=== PATIENT | female | born 1945 | race Caucasian/White ===

== ENCOUNTER 2017-07-05 14:48 | Emergency (ER) | payer MEDICARE ==
[2017-07-05] MEDS ORDERED: MORPHINE SULFATE 4 MG/ML SYRINGE IVP STA (15:16)
[2017-07-05 15:33] VITALS: RESP 18
--- NOTE | 2017-07-05 15:42 | ED ---
General Adult HPI - General Chief complaint: Fall Stated complaint: Fall Time Seen by Provider: 07/05/17 15:03 Source: patient, RN notes reviewed, old records reviewed Mode of arrival: EMS Limitations: no limitations - History of Present Illness Initial comments: This is a 71-year-old female here for evaluation of fall today. Patient is a 68 -year-old mechanical follow-up done here. Patient states she missed a step fell forward landed on left wrist and her face. Patient complaining of severe pain to her nose and forehead. She states the fall happened about an hour and a half ago at systems bleeding from the nose ever since. She denies loss of consciousness blood thinners. Patient's second complaint is her left wrist pain. She was ambulatory at the scene at this time. Denies any headache chest pain or shortness of breath, agrees a fall as mechanical - Related Data Home Medications Medication Instructions Recorded Confirmed Aspirin EC [Ecotrin Low Dose] 81 mg PO HS 07/05/17 07/05/17 Atorvastatin [Lipitor] 20 mg PO HS 07/05/17 07/05/17 Citrucel Tablet 1 tab PO BID 07/05/17 07/05/17 Docusate [Colace] 100 mg PO BID 07/05/17 07/05/17 Fluticasone Nasal [place] [Flonase 2 spr EA NOSTRIL DAILY 07/05/17 07/05/17 Nasal [place]] Folic Acid 0.8 mg PO Q48H 07/05/17 07/05/17 Levothyroxine Sodium [Synthroid] 100 mcg PO SUMOWETHSA 07/05/17 07/05/17 Levothyroxine Sodium [Synthroid] 150 mcg PO TUFR 07/05/17 07/05/17 Loratadine [Claritin] 10 mg PO DAILY 07/05/17 07/05/17 Multivitamins, Thera [Multivitamin 1 tab PO DAILY 07/05/17 07/05/17 (formulary)] Primidone [Mysoline] 100 mg PO TID 07/05/17 07/05/17 Propranolol HCl [Inderal LA] 120 mg PO DAILY 07/05/17 07/05/17 Propranolol [Inderal] 20 mg PO TID 07/05/17 07/05/17 Topiramate [Topamax] 50 mg PO TID 07/05/17 07/05/17 Allergies Allergy/AdvReac Type Severity Reaction Status Date / Time adhesive Allergy Unknown Verified 07/05/17 15:32 Review of Systems ROS Statement: Those systems with pertinent positive or pertinent negative responses have been documented in the HPI. ROS Other: All systems not noted in ROS Statement are negative. Past Medical History Past Medical History: Hyperlipidemia, Thyroid Disorder Additional Past Medical History / Comment(s): benign tremors History of Any Multi-Drug Resistant Organisms: None Reported Past Surgical History: Appendectomy, Orthopedic Surgery Additional Past Surgical History / Comment(s): eye surgery Past Psychological History: No Psychological Hx Reported Smoking Status: Never smoker Past Alcohol Use History: None Reported Past Drug Use History: None Reported General Exam Limitations: no limitations General appearance: alert, in no apparent distress Head exam: Present: normocephalic, normal inspection. Absent: atraumatic ( Obvious nasal deformity or fracture, significant swelling bilateral orbital contusion) Eye exam: Present: normal appearance, PERRL, EOMI. Absent: scleral icterus, conjunctival injection, periorbital swelling ENT exam: Present: normal exam, mucous membranes moist Neck exam: Present: normal inspection. Absent: tenderness, meningismus, lymphadenopathy Respiratory exam: Present: normal lung sounds bilaterally. Absent: respiratory distress, wheezes, rales, rhonchi, stridor Cardiovascular Exam: Present: regular rate, normal rhythm, normal heart sounds. Absent: systolic murmur, diastolic murmur, rubs, gallop, clicks GI/Abdominal exam: Present: soft, normal bowel sounds. Absent: distended, tenderness, guarding, rebound, rigid Extremities exam: Present: normal inspection, full ROM, normal capillary refill. Absent: tenderness, pedal edema, joint swelling, calf tenderness Back exam: Present: normal inspection Neurological exam: Present: alert, oriented X3, CN II-XII intact Psychiatric exam: Present: normal affect, normal mood Skin exam: Present: warm, dry, intact, normal color. Absent: rash Course Vital Signs 07/05/17 15:00 Temperature 98.6 F Pulse Rate 67 Respiratory 18 Rate Blood Pressure 183/92 O2 Sat by Pulse 99 Oximetry - Reevaluation(s) Reevaluation #1: 07/05/17 17:01 Patient does have pain control at this time Procedures - Orthopedic Splinting/Casting Injury #1 Side: left Upper Extremity Injury Location: wrist Upper Extremity Immobilizer: volar splint, ulnar gutter Medical Decision Making - Medical Decision Making 71 female here status post fall, mechanical trip and fall. Patient sustained nasal fracture, no septal hematoma, patient also had no loss of consciousness, no blood thinners. Patient also has left wrist fracture. At this time being and see scalp patient given pain control with adequate results, left wrist is splinted and patient can be discharged home - Radiology Data Radiology results: report reviewed (CT brain C-spine and facial bones shows positive nasal fracture, x-ray left wrist shows positive comminuted distal radius), image reviewed Disposition Clinical Impression: Fall, Nasal fracture, Left wrist fracture, Head injury Disposition: HOME SELF-CARE Condition: Good Instructions: Fall Prevention for Older Adults (ED), Head Injury (ED), Nasal Fracture (ED), Wrist Fracture in Adults (ED) Referrals: Jose De Jesus Medina MD [Primary Care Provider] - 1-2 days
[2017-07-05] MEDS ORDERED: MORPHINE SULFATE 10 MG/ML SYRINGE IM STA (15:43)
--- NOTE | 2017-07-05 16:21 | CT ---
EXAMINATION TYPE: CT brain talisha myers DATE OF EXAM: 07/05/2017 COMPARISON: NONE HISTORY: Patient fell today. Multiple facial lacerations and contusions. CT DLP: 1289.[address] of the brain was performed. The ventricles, basal cisterns and sulci overlying the cerebral convexities demonstrate enlargement. There is no evidence for intracranial hemorrhage or sulcal effacement. There is decreased attenuatio n about the periventricular white matter and deep white matter of both cerebral hemispheres, compatib le with chronic small vessel ischemia. No mass effects are seen. If symptoms persist consider MRI. Osseous calvarium is intact. IMPRESSION: 1. Age related atrophic and chronic small vessel ischemic change without acute intracranial process seen at this time. CT Cervical Spine: Unenhanced CT of the cervical spine was performed with bone and soft tissue window settings submitted . Coronal and sagittal reconstruction is obtained. There is normal alignment and prevertebral soft tissues. No evidence for acute cervical fracture . Scattered degenerative disc disease and spondylosis. Biapical scarring. IMPRESSION: 1. No evidence for acute fracture or subluxation of the cervical spine.
--- NOTE | 2017-07-05 16:26 | CT ---
EXAMINATION TYPE: CT facial bones wo con DATE OF EXAM: 07/05/2017 COMPARISON: NONE HISTORY: Patient fell today. Multiple facial lacerations and contusions. CT DLP: 590.[address] of the facial bones was performed in the axial and coronal planes. Bone and soft tissu e window settings are submitted. Moderately severe periorbital and perinasal soft tissue swelling. Comminuted and mildly displaced nasal bone fractures. The floors of the orbits are intact. Noted with in both maxillary sinuses are tiny fluid levels. Vague lucency anterior wall of the right maxillary s inus medially axial image 45 of 80 suggest possible nondisplaced nondepressed fracture of the anterio r wall of the maxillary sinus. The globes are intact. The paranasal sinuses are otherwise well aerated. IMPRESSION: 1. Comminuted and mildly displaced and depressed nasal bone fractures. 2. Suspect a nondisplaced nondepressed fracture anterior wall of the right maxillary sinus. 3. Small fluid levels within the maxillary sinuses are noted bilaterally. A displaced or depressed le ft maxillary sinus fracture is not identified with certainty at this time. 4. Moderate soft tissue edema as noted.
--- NOTE | 2017-07-05 16:27 | XR ---
EXAMINATION TYPE: XR wrist complete LT DATE OF EXAM: 07/05/2017 CLINICAL HISTORY: pain TECHNIQUE: Frontal, lateral and oblique images of the left wrist are obtained. COMPARISON: None. FINDINGS: Impacted and mildly comminuted distal radial fracture. Intra-articular extension is noted. No additional fractures identified. Soft tissue edema is noted. IMPRESSION: Impacted and mildly comminuted distal radial fracture. ICD 10 closed FRACTURE, INITIAL EVALUATION
[2017-07-05] MEDS ORDERED: IBUPROFEN 600 MG TAB PO STA (17:02)
[2017-07-05] MEDS ORDERED: ONDANSETRON ODT 4 MG TAB PO STA (17:02)
[2017-07-05] MEDS ORDERED: HYDROcodone/APAP 5-325MG 1 EACH TAB PO STA (17:02)
[2017-07-05 17:17] VITALS: BP 136/75; PULSE 60; TEMP 97.2
== END 2017-07-05 17:27 | disposition home or self-care (01) ==
LOC: EC 14:48
DX: S02.2XXA Fracture of nasal bones, initial encounter for closed fracture (principal); S52.592A Other fractures of lower end of left radius, initial encounter for closed fracture; S09.90XA Unspecified injury of head, initial encounter; E78.5 Hyperlipidemia, unspecified; E07.9 Disorder of thyroid, unspecified; Z98.890 Other specified postprocedural states; Z79.82 Long term (current) use of aspirin; Z79.51 Long term (current) use of inhaled steroids; Z79.899 Other long term (current) drug therapy; Z91.048 Other nonmedicinal substance allergy status; Z53.20 Procedure and treatment not carried out because of patient's decision for unspecified reasons; W10.9XXA Fall (on) (from) unspecified stairs and steps, initial encounter; Y92.85 Railroad track as the place of occurrence of the external cause; Y93.01 Activity, walking, marching and hiking
CPT/HCPCS: 99284; 29125; 96372; 73110; 72125; 70486; 70450; J2270

== ENCOUNTER 2017-07-26 08:27 | Day surgery (SDC) | payer MEDICARE ==
[2017-07-25 08:34] VITALS: BMI 22.8
--- NOTE | 2017-07-26 06:18 | HP ---
HISTORY AND PHYSICAL CHIEF COMPLAINT: Nasal fracture. HISTORY OF PRESENT ILLNESS: This patient is a pleasant 71-year-old female, who was referred to my office by the emergency room for evaluation of a nasal fracture which was sustained on 07/05/2017. The patient apparently tripped and fell and struck several rocks on the ground, breaking her arm and fracturing her nasal bone as demonstrated by x-rays. On the patient's initial visit on 07/11/2017 she stated that she was not sure whether she wanted to have any procedure done such as a closed reduction. At that time, I advised her that she has approximately 10 days to 2 weeks to give the decision whether or not she wants to have anything done. Beyond that point it would be almost impossible to reduce the fracture. She returned to my office on 07/24/2017 stating that she would like to have a closed reduction procedure. Therefore she is scheduled to undergo a closed reduction of nasal bone fracture under general anesthesia. PAST MEDICAL HISTORY: Past medical history reveals that she has an allergy to ADHESIVE TAPE, SURGICAL TAPE. She is able to tolerate paper tape and plastic tape. Her current medications include Lipitor, Synthroid, 1 baby aspirin daily, Claritin, Topamax and Inderal. The patient's previous surgeries include a tonsillectomy, wedge resection of both ovaries, appendectomy, left oophorectomy (left ovary removed), laser cone of the cervix, cryosurgery of the cervix. metatarsal osteotomy, colon resection for rectal prolapse, cataract surgery, bladder suspension, hysterectomy and repair of macular hole. REVIEW OF SYSTEMS: Cardiovascular is negative. Respiratory is positive for COPD. Gastrointestinal is negative. Metabolic endocrine is positive for hypercholesterolemia and hypothyroidism. Musculoskeletal is positive osteoarthritis and osteoporosis. Neurological is positive for benign essential tremor. The remainder of the review of systems is unremarkable. PHYSICAL EXAMINATION: This patient is a pleasant 71-year-old female, who is alert and cooperative. HEENT EXAMINATION: Patient is normocephalic. Tympanic membranes are normal. Middle ear space is free of any fluid or infection. Pupils equal, round, react to light and accommodation. Extraocular movements within normal limits. Intranasal examination reveals moderate septal deviation with some soft tissue edema, but no evidence of septal hematoma. There is some deformity externally at the bridge of the nose near the site of the nasal fracture. No other facial fractures are noted. Examination of the oropharynx, palpation of the neck, cranial nerves 2 through 12 and the remainder of the head and neck exam are all within normal limits. CHEST/CARDIOVASCULAR: Both lung vieyra are clear to percussion and auscultation. The patient is in regular sinus rhythm. S1 and S2 are present without any murmurs, S3s or S4s. Peripheral pulses are bilaterally symmetrical and within normal limits. ABDOMEN: There is no evidence of any masses, megaly, or tenderness. The abdomen is soft. Skin is unremarkable. Musculoskeletal and neurological are within normal limits. PELVIC RECTAL EXAM: The pelvic rectal exam is deferred at this time because the patient has this done on a regular basis at her family physician's office. The remainder of the physical examination is essentially unremarkable. IMPRESSION: Nasal bone fracture. PLAN: The patient is scheduled to undergo a closed reduction of nasal fracture under general anesthesia. ATTENTION RNS IN THE PRE-SURGICAL AREA: I have not ordered any pre-surgical prophylactic antibiotics for this patient. If the pharmacy department sends any pre- surgical prophylactic antibiotics to the pre-surgical area for this patient, please cancel that order and return the medication to the pharmacy department and make sure that they credit the patient's account appropriately. The only medications that I have ordered for this patient is Ofirmev 1000 mg IV, to be given once an intravenous has been established. I have discussed the risks, benefits and alternative therapies for the above-mentioned procedure and for both sedation/analgesia as well as necessary blood product administration, if indicated, as they pertain to this patient. The patient has indicated his or her understanding and acceptance of the risks and procedures discussed. MMODL / IJN: [id number] /
--- NOTE | 2017-07-26 07:12 | HP ---
HISTORY AND PHYSICAL CHIEF COMPLAINT: Nasal fracture. HISTORY OF PRESENT ILLNESS: This patient is a 71-year-old female who was seen in [facility] Emergency Room on 07/05/2017 with a possible nasal fracture. The patient apparently had fallen around her house and struck her head and arm on several rocks that were on the ground. She broke her left arm and apparently fractured her nose and also the maxillary sinus. She states that she did not lose consciousness and has not had any episodes of dizziness. She is not complaining of any severe pain or nasal bleeding at this time. She was seen in my office on 07/11/2017 and at that time clinical examination and review of the x- ray revealed evidence of a fracture of the nasal bones. The patient at that time was not sure whether she wanted to have anything done and therefore I told her that as long as she came back to my office within the next 10 days to 2 weeks that we would still be able to reduce the fracture without any significant difficulty. She returns to the office today stating that she would like to have the fracture reduced. In addition to this, there is a small bump on the bridge of her nose and she was wondering whether or not this would disappear after the nose was reset. I advised her that it all depends on whether that particular bone was present before the injury or not. The patient does not think it was there prior to the injury. She is therefore scheduled to undergo a closed reduction of nasal bone fracture under general anesthesia. PAST MEDICAL HISTORY: Past medical history reveals that she has no allergies to medications. Current medications include Lipitor, Synthroid, baby aspirin daily, Claritin, Topamax and Inderal. REVIEW OF SYSTEMS: Review of systems reveals the cardiovascular system is positive for a cardiac arrhythmia. Respiratory is negative. Gastrointestinal is negative. Metabolic endocrine is positive for hypocholesterolemia. The remainder of the review of systems is unremarkable. Previous surgeries include wedge resection both ovaries and an appendectomy, tonsillectomy, left oophorectomy, laser cone of the cervix, cryosurgery of the cervix, metatarsal , colon resection for rectal prolapse, cataract surgery, bladder suspension, hysterectomy, repair of macular hole. PHYSICAL EXAMINATION: The patient is a pleasant 71-year-old female who is alert and cooperative. HEENT EXAMINATION: Patient is normocephalic. Tympanic membranes are normal. Middle ear spaces are free of any fluid or infection. Pupils equal, round, react to light and accommodation. Extraocular movements within normal limits. Intranasal examination reveals the septum is in the midline, there is some soft tissue swelling intranasally but no evidence of a septal hematoma. Palpation of the bridge of the nose reveals that the patient does have some deformity secondary to nasal bone fracture. There is also a small hump in nose which may be secondary to the nasal fracture. Examination of oropharynx, palpation of the neck, cranial nerves 2 through 12 and remainder of the head and neck exam are all within normal limits. CHEST/CARDIOVASCULAR: Both lung vieyra are clear to percussion and auscultation. The patient is in regular sinus rhythm. S1 and S2 present without any murmurs, S3 or S4. Peripheral pulses are bilaterally symmetrical and within normal limits. ABDOMEN: There is no evidence of any masses, megaly, or tenderness. The abdomen is soft. Skin is unremarkable. Musculoskeletal and neurological with an all within normal limits. PELVIC/RECTAL EXAM: The pelvic rectal exam is deferred at this time because the patient has this done on a regular basis at her family physician's office. The remainder of physical exam is essentially unremarkable. IMPRESSION: Nasal bone fracture. PLAN: The patient is scheduled to undergo a closed reduction of nasal fracture under general anesthesia in a.m. ATTENTION RNS IN THE PRE-SURGICAL AREA: I have not ordered any pre-surgical prophylactic antibiotics for this patient. If the pharmacy department sends any pre- surgical prophylactic antibiotics to the presurgical area for this patient. They should be returned and make sure that the patient's account is credited appropriately. The only medications that I have ordered is Ofirmev 1000 mg IV to be given to be given once an intravenous line had been established. I have discussed the risks, benefits and alternative therapies for the above-mentioned procedure and for both sedation/analgesia as well as necessary blood product administration, if indicated, as they pertain to this patient. The patient has indicated his or her understanding and acceptance of the risks and procedures discussed. MMODL / IJN: [id number] /
--- NOTE | 2017-07-26 07:28 | HP ---
HISTORY AND PHYSICAL CHIEF COMPLAINT: Nasal fracture. HISTORY OF PRESENT ILLNESS: This patient is a pleasant 71-year-old female, who was last seen in my office recently with complaint of a nasal fracture that occurred on 07/05/2017. At that time, she was seen in the emergency room and stated that she had fallen and struck several rocks and in the process had fractured her left arm and also her nasal bones as demonstrated by x- rays. The patient was seen in my office on 07/24/2017 and at that time, she was not sure whether or not she wanted to have a closed reduction of the nasal fracture performed. I advised her that as long as she contacts my office within the next 10 to 14 days that we should still be able to do the procedure if she changes her mind. The patient returns today stating that she would like to have the procedure performed, that is to say the closed reduction of nasal fracture. PAST MEDICAL HISTORY: Past medical history reveals that the patient has allergies to CERTAIN ADHESIVES namely SURGICAL ADHESIVE TAPE. She states that she is able to tolerate paper tape and also plastic tape. Current medications include Lipitor, Synthroid, 1 baby aspirin daily, Claritin, Topamax, and Inderal. Previous surgeries include a tonsillectomy, a wedge resection of both ovaries, appendectomy, left ovary removal, laser cone of the cervix, cryosurgery of the cervix, metatarsal osteotomy, colon resection for rectal prolapse; cataract surgery, bilateral; bladder suspension, hysterectomy, macular hole repair. REVIEW OF SYSTEMS: Cardiovascular is negative. Respiratory is positive for COPD. Gastrointestinal is negative. Metabolic endocrine is positive for hypercholesterolemia and hypothyroidism. Musculoskeletal is negative. Neurological is positive for benign essential tremor. Skin and the remainder review of systems is unremarkable. PHYSICAL EXAMINATION: This patient is a pleasant 71-year-old female who is alert and cooperative. HEENT EXAMINATION: The patient is normocephalic. Tympanic membranes are normal. Middle ear spaces are free of any fluid or infection. Pupils are equal, round, react to light and accommodation. Extraocular movements are within normal limits. Intranasal examination reveals moderate septal deviation with no evidence of septal hematoma with mild soft tissue edema of the nasal passage. Examination of the bridge of the nose reveals the patient has a mildly depressed nasal bone fracture and this is demonstrated on the CT scan of the facial bones also. Palpation of the infra rims and zygomatic arches does not reveal any evidence of any potential fractures. Palpation of the neck, examination of the oropharynx, cranial nerves 2 through 12 and the remainder of the head and neck exam are within normal limits. CHEST/CARDIOVASCULAR: Both lung vieyra are clear to percussion and auscultation. The patient is in regular sinus rhythm. S1 and S2 are present without evidence of any murmurs, S3s or S4s. Peripheral pulses are bilaterally symmetrical and within normal limits. ABDOMEN: There is no evidence of any masses, megaly, or tenderness. The abdomen is soft. Skin is unremarkable. Musculoskeletal and neurological are within normal limits. PELVIC/RECTAL EXAM: The pelvic rectal exam is deferred at this time because the patient has this done on a regular basis at her family physician's office. The remainder of physical exam is essentially unremarkable. IMPRESSION: Nasal bone fracture. PLAN: The patient is scheduled to undergo closed reduction of nasal bone fracture under general anesthesia in the a.m. ATTENTION RNS IN THE PRE-SURGICAL AREA: I have not ordered any pre-surgical prophylactic antibiotics for this patient. If the pharmacy department sends any pre- surgical prophylactic antibiotic to the presurgical area for this patient, they should be returned to the pharmacy area and make sure that the patient's account is credited appropriately. The only medications that I have ordered for this patient to receive preoperatively is Ofirmev 1000 mg IV, once an intravenous line had been established. I have discussed the risks, benefits and alternative therapies for the above-mentioned procedure and for both sedation/analgesia as well as necessary blood product administration, if indicated, as they pertain to this patient. The patient has indicated his or her understanding and acceptance of the risks and procedures discussed. MMODL / RAHULN: [id number] /
[~2017-07-26 08:27] MED LIST: DEXAMETHASONE SOD PHOSPHATE 10 MG/ML 1 ML VIAL IV ONE; HYDROmorphone 1 MG/ML 1 ML SYRINGE IVP PRN; LACTATED RINGERS 1,000 ML IV SCH; MIDAZOLAM 2 MG/2 ML VIAL IV PRN; ONDANSETRON 4 MG/2 ML VIAL IVP ONE; Pre Op ABX Message 1 EACH MISC MISCELLANE ONE
[2017-07-26 08:48] VITALS: RESP 16
[2017-07-26] MEDS ORDERED: ACETAMINOPHEN IV (For NPO) 1,000 MG in EMPTY BAG 1 BAG IVPB ONE (09:45)
[2017-07-26] MEDS ORDERED: ePHEDrine SULFATE/0.9% NACL/PF 50 MG/5 ML SYRINGE IV ONE (10:05)
[2017-07-26] MEDS ORDERED: PROPOFOL 10 MG/ML 20 ML VIAL IV ONE (10:05)
[2017-07-26] MEDS ORDERED: MIDAZOLAM 2 MG/2 ML VIAL ONE (10:05)
[2017-07-26] MEDS ORDERED: SUCCINYLCHOLINE CHLORIDE 100 MG/5 ML SYR IV ONE (10:05)
[2017-07-26] MEDS ORDERED: LIDOCAINE 1% INJ 10MG/ML (20 ML MDV) ONE (10:05)
[2017-07-26] MEDS ORDERED: OXYMETAZOLINE 0.05% NASL SPRAY 1 SPRAY BOTTLE EA NOSTRIL ONE (10:29)
[2017-07-26 11:15] VITALS: TEMP 97
[2017-07-26 12:18] VITALS: BP 147/77; PULSE 55
--- NOTE | 2017-07-26 17:07 | OP ---
OPERATIVE REPORT DATE OF SURGERY: 07/26/2017. PREOPERATIVE DIAGNOSIS: Nasal bone fracture. POSTOPERATIVE DIAGNOSIS: Nasal bone fracture. ANESTHESIA: General. PROCEDURES: Close reduction of nasal bone fracture. OPERATING SURGEON: Dr. Lubin. COMPLICATIONS: None. ESTIMATED BLOOD LOSS: Less than 5 mL. OPERATIVE PROCEDURE: The patient was placed on the operating table in supine position. After uneventful induction and endotracheal intubation, satisfactory general anesthesia was obtained. Next the patient was draped in the usual and customary fashion, following which cottonoids saturated with Afrin nasal spray were placed in the right and left nares and left there for approximately 5 minutes to achieve maximal vasoconstriction. Next, inspection of the external portion of the bridge of the nose revealed that there was a hump on the right side of the nose and a depressed area on the left side of the nose. Therefore, initially using a heavy periosteal elevator, the depressed portion of the nasal bone was elevated and a portion of the hump was also elevated. Subsequently using a pair of Mower nasal forceps, the portion of the nasal bone which appeared to have a hump in it was grasped and was subsequently moved medially, thus reducing the hump deformity. This had to be done several times, as the hump had a tendency to recur. Finally the hump was reduced and the depressed fracture was reduced. Next a Jose Luis nasal splint was applied in the usual fashion by applying Mastisol onto the skin and subsequently applying the nasal strips. Following this, a support piece of foam was placed along the ridge of the nose. Next the nasal Steri-Strips were lightly coated with Mastisol, and after a period of a few minutes, the soft Velcro portion of the nasal splint was applied in the usual fashion. Following this, the aluminum splint was shaped to order and was placed on the Velcro, with an emphasis on pressure on the right side in an effort to keep the hump reduced. Care was taken not to totally obstruct the patient's nostrils. At this point the procedure was terminated. There were no intraoperative complications. Patient tolerated the procedure well and was returned to the recovery room in satisfactory condition. MMODL / IJN: [id number] /
--- NOTE | 2017-07-29 22:16 | OP ---
OPERATIVE REPORT DATE OF SURGERY: 07/26/2017 PREOPERATIVE DIAGNOSIS: Nasal bone fracture. POSTOPERATIVE DIAGNOSIS: Nasal bone fracture. ANESTHESIA: General. PROCEDURE: Closed reduction of nasal bone fracture. OPERATING SURGEON: Dr. Bertrand Lubin. COMPLICATIONS: None. ESTIMATED BLOOD LOSS: Less than 5 mL. OPERATIVE PROCEDURE: The patient was placed on operating table in supine position after uneventful induction endotracheal intubation, satisfactory general anesthesia was obtained. Next, the patient's face was draped in the usual and customary fashion. Following this, both nares were packed with cottonoids saturated with Afrin nasal spray and left in place for a period of approximately 7 minutes to achieve maximum basal constriction. Inspection intranasally did not reveal any evidence of a septal hematoma. Next, inspection externally revealed the patient had significant deformity of the nasal bones with an apparent hump on the right side and a depressed fracture on the left side of the nasal bridge. Therefore initially attention was directed towards the nasal hump on the right side and this was corrected using a heavy periosteal elevator and a pair ASHCE nasal forceps to reduce this deformed fracture. This was done by inserting the heavy periosteum elevator and subsequently the Ashce forceps into the right naris. The depressed bone fracture was elevated again using a hairy periosteal elevator and also a pair of ASHCE nasal forceps. Palpation of the area revealed that the depressed bone fracture had been elevated and the hump had been reduced. Next a [place] splint kit was applied in the usual and customary fashion by applying the nasal Steri-Strips first and subsequently applying a nasal splint support over then nasal Steri-Strips. The looped soft side of the Jose Luis splint was applied to the area in the usual fashion. Next the metal [place] splint was contoured to the patient's nose with attention such as to apply more pressure to the right side of the nose where the previous nasal hump had been reduced. The tape was removed from the metal portion of the [place] splint and the splint was applied in the usual and customary fashion. At this point, the procedure was terminated. There were no intraoperative complications. Patient tolerated procedure well and was returned to the recovery room in satisfactory condition. MMODL / IJN: [id number] /
== END 2017-07-26 12:25 | disposition home or self-care (01) ==
LOC: OR 08:27
PROVIDERS: ATTEND Otolaryngology
DX: S02.2XXA Fracture of nasal bones, initial encounter for closed fracture (principal); W18.30XA Fall on same level, unspecified, initial encounter; J44.9 Chronic obstructive pulmonary disease, unspecified; G25.0 Essential tremor; E78.00 Pure hypercholesterolemia, unspecified; E03.9 Hypothyroidism, unspecified; Z79.891 Long term (current) use of opiate analgesic; Z79.899 Other long term (current) drug therapy; Z91.09 Other allergy status, other than to drugs and biological substances
CPT/HCPCS: 21320; J2250; J1100; J2405; J2001; J0131; J0330; J2704

== ENCOUNTER 2018-10-16 13:53 | Inpatient (IN) | payer MEDICARE ==
[2018-10-16] MEDS ORDERED: SODIUM CHLORIDE 0.9% 1,000 ML IV STA (14:21)
[2018-10-16] MEDS ORDERED: PANTOPRAZOLE 40 MG/10 ML VIAL IVP STA (14:55)
--- NOTE | 2018-10-16 14:58 | ED ---
Abdominal Pain HPI - General Source: patient, RN notes reviewed Mode of arrival: wheelchair Limitations: no limitations <Travis Becerril - Last Filed: 10/16/18 16:49> <Nash Martinez - Last Filed: 10/16/18 19:55> <Michael Ruth - Last Filed: 10/16/18 20:13> - General Chief Complaint: Abdominal Pain Stated Complaint: Abd pain Time Seen by Provider: 10/16/18 14:20 - History of Present Illness Initial Comments: 73-year-old female sent emergency Department chief complaint of upper abdominal pain. Patient states started a few hours prior arrival while she was eating. She states the pain is not improved or resolved. She states the pain radiated to her back. Patient states that she has slight nausea no vomiting no diarrhea no melena or hematochezia. Patient states she struggle constipation which is normal for her. She's had a prior hysterectomy, appendectomy, all resection secondary to prolapsed rectum. Patient denies any current chest pain or shortness breath. She did admit that she had some reflux last night. (Travis Becerril) - Related Data Home Medications Medication Instructions Recorded Confirmed Atorvastatin [Lipitor] 20 mg PO HS 07/05/17 10/16/18 Citrucel Tablet 1 tab PO BID 07/05/17 10/16/18 Docusate [Colace] 100 mg PO BID 07/05/17 10/16/18 Fluticasone Nasal Index [Flonase 2 spr EA NOSTRIL DAILY 07/05/17 10/16/18 Nasal Index] Folic Acid 0.8 mg PO Q48H 07/05/17 10/16/18 Levothyroxine Sodium [Synthroid] 100 mcg PO SUMOWETHSA 07/05/17 10/16/18 Levothyroxine Sodium [Synthroid] 150 mcg PO TUFR 07/05/17 10/16/18 Loratadine [Claritin] 10 mg PO DAILY 07/05/17 10/16/18 Multivitamins, Thera [Multivitamin 1 tab PO DAILY 07/05/17 10/16/18 (formulary)] Primidone [Mysoline] 100 mg PO TID 07/05/17 10/16/18 Propranolol HCl [Inderal LA] 120 mg PO DAILY 07/05/17 10/16/18 Propranolol [Inderal] 20 mg PO TID 07/05/17 10/16/18 Topiramate [Topamax] 50 mg PO TID 07/05/17 10/16/18 Cholecalciferol [Vitamin D3] 1,000 unit PO DAILY 10/16/18 10/16/18 Propranolol [Inderal] 20 mg PO DAILY@1600 10/16/18 10/16/18 Topiramate [Topamax] 50 mg PO DAILY@1600 10/16/18 10/16/18 Allergies Allergy/AdvReac Type Severity Reaction Status Date / Time adhesive Allergy reddness Verified 10/16/18 14:52 Review of Systems ROS Other: All systems not noted in ROS Statement are negative. <Travis Becerril - Last Filed: 10/16/18 16:49> ROS Other: All systems not noted in ROS Statement are negative. <Nash Martinez - Last Filed: 10/16/18 19:55> ROS Other: All systems not noted in ROS Statement are negative. <Michael Ruth - Last Filed: 10/16/18 20:13> ROS Statement: Those systems with pertinent positive or pertinent negative responses have been documented in the HPI. Past Medical History Past Medical History: Hyperlipidemia, Thyroid Disorder Additional Past Medical History / Comment(s): left wrist fx, in cast, benign essential tremors History of Any Multi-Drug Resistant Organisms: None Reported Past Surgical History: Appendectomy, Orthopedic Surgery Additional Past Surgical History / Comment(s): eye surgery for hole in macula, sagrario cataracts, rt foot sx Past Anesthesia/Blood Transfusion Reactions: Previous Problems w/ Anesthesia Additional Past Anesthesia/Blood Transfusion Reaction / Comment(s): trouble waking up Past Psychological History: No Psychological Hx Reported Smoking Status: Never smoker <Travis Becerril - Last Filed: 10/16/18 16:49> General Exam Limitations: no limitations General appearance: alert, in no apparent distress Head exam: Present: atraumatic, normocephalic, normal inspection Eye exam: Present: normal appearance, PERRL, EOMI. Absent: scleral icterus, conjunctival injection, periorbital swelling ENT exam: Present: normal exam, normal oropharynx, mucous membranes moist Neck exam: Present: normal inspection. Absent: tenderness, meningismus, lymphadenopathy Respiratory exam: Present: normal lung sounds bilaterally. Absent: respiratory distress, wheezes, rales, rhonchi, stridor Cardiovascular Exam: Present: regular rate, normal rhythm, normal heart sounds. Absent: systolic murmur, diastolic murmur, rubs, gallop, clicks GI/Abdominal exam: Present: soft, tenderness, normal bowel sounds. Absent: distended, guarding, rebound, rigid Back exam: Absent: CVA tenderness (R), CVA tenderness (L) Skin exam: Present: warm, dry, intact, normal color. Absent: rash <Travis Becerril - Last Filed: 10/16/18 16:49> Course <Travis Becerril - Last Filed: 10/16/18 16:49> <Nash Martinez - Last Filed: 10/16/18 19:55> <Michael Ruth - Last Filed: 10/16/18 20:13> Vital Signs 10/16/18 10/16/18 10/16/18 14:07 15:20 15:22 Temperature 98.2 F Pulse Rate 59 L 60 Respiratory 16 16 Rate Blood Pressure 159/79 144/77 O2 Sat by Pulse 100 98 Oximetry 10/16/18 10/16/18 16:00 17:34 Temperature Pulse Rate 61 57 L Respiratory 18 16 Rate Blood Pressure 143/75 157/71 O2 Sat by Pulse 98 100 Oximetry - Reevaluation(s) Reevaluation #1: 10/16/18 19:55 A supervision: I proceeded [id number] evaluation the patient she did have the onset of abdominal pain around 12 noon today. This was before lunch she states it was in the epigastrium radiating to the right upper quadrant area. He was very severe. She came to the emergency department and imaging was performed which did show evidence of thickened gallbladder wall distended gallbladder and a common bile duct of 1 cm. She still has right upper quadrant tenderness palpation at this time. I did discuss case with Dr. Medina. Patient will be admitted. I do agree with the assessment and plan. Patient be started on IV antibiotics. (Nash Martinez) Medical Decision Making - Lab Data Result diagrams: 10/16/18 14:51 10/16/18 14:51 <Travis Becerril - Last Filed: 10/16/18 16:49> - Lab Data Result diagrams: 10/16/18 14:51 12/06/18 14:51 <Nash Martinez - Last Filed: 10/16/18 19:55> - Lab Data Result diagrams: 10/16/18 14:51 10/16/18 14:51 <Michael Ruth - Last Filed: 10/16/18 20:13> - Medical Decision Making Patient was signed out to me by JEAN Robles at 1700. Patient had pos salazar sign on exam. CBC and CMP are unremarkable. Troponin is negative. Amylase and lipase are within normal limits. CT shows endings that suggests clinical possibility of cholecystitis with excessive higginbotham colonic stool volume. Abdominal ultrasound shows biliary ductal dilation at 1 cm. Alkaline phosphatase and bilirubin levels are within normal limits. On reevaluation patient's pain is improved. However patient agrees to admission at this time for GI evaluation and possible HIDA scan. She will be admitted for further evaluation. Per Dr. Martinez, Dr. Medina said he willl put in consults in the morning and to Start patient on Rocephin. (Michael Ruth) - Lab Data Lab Results 10/16/18 10/16/18 10/16/18 Range/Units 14:51 14:51 14:51 WBC 6.1 (3.8-10.6) k/uL RBC 4.09 (3.80-5.40) m/uL Hgb 13.4 (11.4-16.0) gm/dL Hct 41.3 (34.0-46.0) % MCV 101.0 H (80.0-100.0) fL MCH 32.7 (25.0-35.0) pg MCHC 32.3 (31.0-37.0) g/dL RDW 13.1 (11.5-15.5) % Plt Count 240 (150-450) k/uL Neutrophils % 77 % Lymphocytes % 13 % Monocytes % 5 % Eosinophils % 3 % Basophils % 0 % Neutrophils # 4.7 (1.3-7.7) k/uL Lymphocytes # 0.8 L (1.0-4.8) k/uL Monocytes # 0.3 (0-1.0) k/uL Eosinophils # 0.2 (0-0.7) k/uL Basophils # 0.0 (0-0.2) k/uL Sodium 138 (137-145) mmol/L Potassium 4.3 (3.5-5.1) mmol/L Chloride 102 (98-107) mmol/L Carbon Dioxide 27 (22-30) mmol/L Anion Gap 9 mmol/L BUN 16 (7-17) mg/dL Creatinine 0.90 (0.52-1.04) mg/dL Est GFR (CKD-EPI)AfAm 73 (>60 ml/min/1.73 sqM) Est GFR (CKD-EPI)NonAf 63 (>60 ml/min/1.73 sqM) Glucose 101 H (74-99) mg/dL Plasma Lactic Acid Constantine 1.1 (0.7-2.0) mmol/L Calcium 9.5 (8.4-10.2) mg/dL Total Bilirubin 0.3 (0.2-1.3) mg/dL AST 27 (14-36) U/L ALT 13 (9-52) U/L Alkaline Phosphatase 69 (38-126) U/L Troponin I (0.000-0.034) ng/mL Total Protein 6.5 (6.3-8.2) g/dL Albumin 3.9 (3.5-5.0) g/dL Amylase 51 (30-110) U/L Lipase 106 (23-300) U/L Urine Color Urine Appearance (Clear) Urine pH (5.0-8.0) Ur Specific [place] (1.001-1.035) Urine Protein (Negative) Urine Glucose (UA) (Negative) Urine Ketones (Negative) Urine Blood (Negative) Urine Nitrite (Negative) Urine Bilirubin (Negative) Urine Urobilinogen (<2.0) mg/dL Ur Leukocyte Esterase (Negative) Urine RBC (0-5) /hpf 10/16/18 10/16/18 Range/Units 14:51 15:10 WBC (3.8-10.6) k/uL RBC (3.80-5.40) m/uL Hgb (11.4-16.0) gm/dL Hct (34.0-46.0) % MCV (80.0-100.0) fL MCH (25.0-35.0) pg MCHC (31.0-37.0) g/dL RDW (11.5-15.5) % Plt Count (150-450) k/uL Neutrophils % % Lymphocytes % % Monocytes % % Eosinophils % % Basophils % % Neutrophils # (1.3-7.7) k/uL Lymphocytes # (1.0-4.8) k/uL Monocytes # (0-1.0) k/uL Eosinophils # (0-0.7) k/uL Basophils # (0-0.2) k/uL Sodium (137-145) mmol/L Potassium (3.5-5.1) mmol/L Chloride (98-107) mmol/L Carbon Dioxide (22-30) mmol/L Anion Gap mmol/L BUN (7-17) mg/dL Creatinine (0.52-1.04) mg/dL Est GFR (CKD-EPI)AfAm (>60 ml/min/1.73 sqM) Est GFR (CKD-EPI)NonAf (>60 ml/min/1.73 sqM) Glucose (74-99) mg/dL Plasma Lactic Acid Constant[place] (0.7-2.0) mmol/L Calcium (8.4-10.2) mg/dL Total Bilirubin (0.2-1.3) mg/dL AST (14-36) U/L ALT (9-52) U/L Alkaline Phosphatase (38-126) U/L Troponin I <0.012 (0.000-0.034) ng/mL Total Protein (6.3-8.2) g/dL Albumin (3.5-5.0) g/dL Amylase (30-110) U/L Lipase (23-300) U/L Urine Color Light Yellow Urine Appearance Turbid H (Clear) Urine pH 7.5 (5.0-8.0) Ur Specific [place] 1.008 (1.001-1.035) Urine Protein Negative (Negative) Urine Glucose (UA) Negative (Negative) Urine Ketones Negative (Negative) Urine Blood Negative (Negative) Urine Nitrite Negative (Negative) Urine Bilirubin Negative (Negative) Urine Urobilinogen <2.0 (<2.0) mg/dL Ur Leukocyte Esterase Negative (Negative) Urine RBC 3 (0-5) /hpf 10/16/18 16:49 EKG performed at 15:02 sinus bradycardia with a rate of 58 [place] 172 QRS 82 QT/QTC 426/418 (Travis Becerril) Disposition <Travis Becerril - Last Filed: 10/16/18 16:49> <Nash Martinez - Last Filed: 10/16/18 19:55> Time of Disposition: 19:42 <Michael Ruth - Last Filed: 10/16/18 20:13> Clinical Impression: Upper abdominal pain, Common bile duct dilation Disposition: ADMITTED IP TO THIS HOSP Condition: Good Referrals: Jose De Jesus Medina MD [Primary Care Provider] - 1-2 days
[2018-10-16 15:20] LABS: Albumin 3.9 g/dL (3.5-5.0); Calcium 9.5 mg/dL (8.4-10.2); Potassium 4.3 mmol/L (3.5-5.1); Total Bilirubin 0.3 mg/dL (0.2-1.3); Total Protein 6.5 g/dL (6.3-8.2)
[2018-10-16 15:24] LABS: Basophils % (A) 0 %; Eosinophils # (A) 0.2 k/uL (0-0.7); Eosinophils % (A) 3 %; HCT 41.3 % (34.0-46.0); HGB 13.4 gm/dL (11.4-16.0); Lymphocytes # (A) 0.8 k/uL (1.0-4.8); Lymphocytes % (A) 13 %; MCH 32.7 pg (25.0-35.0); MCHC 32.3 g/dL (31.0-37.0); Mean Platelet Volume 6.8; Monocytes # (A) 0.3 k/uL (0-1.0); Monocytes % (A) 5 %; Neutrophils # (A) 4.7 k/uL (1.3-7.7); Neutrophils % (A) 77 %; Platelet Count 240 k/uL (150-450); RBC 4.09 m/uL (3.80-5.40); RDW 13.1 % (11.5-15.5); WBC 6.1 k/uL (3.8-10.6)
[2018-10-16 15:42] LABS: Appearance,Urine Turbid (Clear); Bilirubin,Urine Negative (Negative); Blood,Urine Negative (Negative); Color,Urine Light Yellow; Glucose,Urine (UA) Negative (Negative); Ketones,Urine Negative (Negative); Leukocyte Esterase,Urine Negative (Negative); Nitrite,Urine Negative (Negative); PH, Urine 7.5 (5.0-8.0); Protein,Urine Negative (Negative); RBC,Urine 3 /hpf (0-5); Specific Gravity,Urine 1.008 (1.001-1.035); Urobilinogen,Urine <2.0 mg/dL (<2.0)
--- NOTE | 2018-10-16 16:02 | US ---
EXAMINATION TYPE: US abdomen limited DATE OF EXAM: 10/16/2018 COMPARISON: NONE CLINICAL HISTORY: 73-year-old female Pain. Pt states upper ABD pain, pt is not NPO, ate 3 hours prior to exam TECHNIQUE: Multiple sonographic images of the right upper quadrant are obtained. FINDINGS: EXAM MEASUREMENTS: Liver Length: 13.8 cm Gallbladder Wall: 0.4 cm CBD: 1.0 cm Right Kidney: 10.1 x 3.8 x 4.5 cm Pancreas: wnl Liver: wnl Gallbladder: Lumen clear, appeared hydropic with thickened GB wall there are no pericholecystic flui d. Evidence for sonographic Man's sign: Yes CBD: Dilated at 1 cm. Right Kidney: Cyst lower pole= 0.9 x 0.7 x 0.9 cm, otherwise, no hydronephrosis. IMPRESSION: 1. Biliary ductal dilatation at 1 cm. Correlate with alkaline phosphatase and bilirubin levels to exc lude biliary obstruction. 2. If laboratory assessments suggests biliary obstruction, this may explain the hydropic gallbladder change. However, given wall thickening, gallbladder hydrops, and positive sonographic Man sign, ac gaurav cholecystitis is difficult to exclude. If no intervention at this time, HIDA scan with ejection f raction may be useful to further evaluate.
--- NOTE | 2018-10-16 17:57 | CT ---
EXAMINATION TYPE: CT abdomen pelvis w con DATE OF EXAM: 10/16/2018 COMPARISON: None HISTORY: Mid abdominal pain with nausea. CT DLP: 483.5 mGycm. Automated exposure control for dose reduction was used. TECHNIQUE: Helical acquisition of images was performed from the lung bases through the pelvis. CONTRAST: Performed without Oral Contrast and with IV Contrast, patient injected with 100 mL of Isovu e 300. FINDINGS: LUNG BASES: No significant abnormality is appreciated. LIVER: No significant abnormality is appreciated. BILIARY TREE: The gallbladder is distended and there is mild indistinctness of its margins circumfere ntially. There is mild prominence of the intrahepatic biliary tree down to the expected position of t he CBD, but this is a nonspecific finding which can be characterized with LFT assessment. PANCREAS: No significant abnormality is seen. SPLEEN: No significant abnormality is seen. ADRENALS: No significant abnormality is seen. KIDNEYS: No significant abnormality is seen. PERITONEAL CAVITY: No pneumoperitoneum or fluid.: No free air is visualized. RETROPERITONEAL ADENOPATHY: None visualized REPRODUCTIVE ORGANS: No significant abnormality is seen URINARY BLADDER: No significant abnormality is seen. PELVIC ADENOPATHY: None visualized. OSSEOUS STRUCTURES: No significant abnormality is seen. BOWEL: No significant abnormality is seen. Number, excessive pancolonic stool volume is noted. VASCULATURE: No acute findings. IMPRESSION: 1) CT FINDINGS WHICH SUGGEST THE CLINICAL POSSIBILITY OF CHOLECYSTITIS. 2) EXCESSIVE PANCOLONIC STOOL VOLUME.
[2018-10-16] MEDS ORDERED: HYDROmorphone 1 MG/ML 1 ML SYRINGE IVP PRN (20:10)
[2018-10-16] MEDS ORDERED: NALOXONE 0.4 MG/ML 1 ML VIAL IV PRN (20:10)
[2018-10-16] MEDS: SODIUM CHLORIDE 0.9% 1,000 ML IV SCH (21:15)
--- NOTE | 2018-10-17 04:44 | HP ---
HISTORY AND PHYSICAL ATTENDING PHYSICIAN: Dr. Gregg Medina. CHIEF COMPLAINT: Abdominal pain. HISTORY OF PRESENT ILLNESS: This 73-year-old female presents to the emergency room with complaint of significant abdominal pain, mostly upper abdomen. The patient started having pain before lunch time today. The pain was sudden onset, severe in intensity, mostly concentrated to the epigastric area, associated with some nausea. No vomiting. No fever or chills. No diarrhea. The patient says the pain continued. She had half a tuna sandwich at lunch time. Due to pain continuing waiting till after she came to the hospital. The patient's pain she said started somewhat more over the right upper abdomen and at times felt like it was in her ribs. The patient was seen in the emergency room, noted to have no fever. She had an ultrasound of the abdomen and CT scan of the abdomen done. There was some dilatation of the bile duct as well as the gallbladder and there is thickening of the gallbladder wall. The patient's clinical examination is tender at right upper abdomen, mostly in the Man's point. There is no rebound tenderness. The patient has no fever, chills, and does not appear septic. PAST MEDICAL HISTORY: Past medical history is primarily significant for familial tremors of the nervous system. She is on medical therapy. She follows with movement disorder physician and is on medications for the same. She also has had a previous history of hypothyroidism, on replacement therapy, hyperlipidemia, on medical therapy. She has a history of chronic atrial fibrillation and irritable bowel with constipation. The patient has previous rectal prolapse for which she has had surgery. Past medical history also significant for mild intermittent asthma, hepatitis A and some degenerative arthritis. PAST SURGICAL HISTORY: Significant for tonsils and adenoids. Left ovary removal, cystocele repair, bilateral cataracts, rectal prolapse repair, right 2nd toe surgery, cervix surgery and vaginal hysterectomy. PERSONAL HISTORY: Never smoker. Alcohol none. ALLERGIES: ALLERGIC TO ADHESIVE TAPE. MEDICATIONS: Medications at present include Topamax 50 mg at 4:00 pm, 50 mg t.i.d. and 50 mg t.i.d. Also, Inderal 20 mg daily at 4:00 pm and Inderal 20 mg t.i.d. Also takes Inderal LA 120 mg daily. Mysoline 100 mg t.i.d., multivitamin 1 daily, Claritin 10 mg daily, levothyroxine 150 mcg Tuesdays and Fridays and 100 mcg 5 days a week. Folic acid 0.8 mg every other day. Flonase nasal inhaler 2 puffs each nostril daily, Colace 100 mg b.i.d., Citrucel 1 tab b.i.d., vitamin D3 1000 units daily. Atorvastatin 20 mg at q.h.s. FAMILY MEDICAL HISTORY: Father age 75. He had chronic kidney disease. Mother at the age of 98 atherosclerotic heart disease. Brother age 59 with history of depression. Brother at the age of 27, gunshot wound, sister 69 with a pineal gland tumor. Sister 67 with history of tic [place]. Sister age 64 with history of diabetes mellitus. Son 52 with history of tremors. A son 50 -year-old as well with history of tremors. Son 47 years old with history of gastroesophageal reflux, daughter, 40 years of age with history of depression. SOCIAL HISTORY: Patient is a retired RN. REVIEW OF SYSTEMS: NEURO: Denies any headaches, dizziness. No double vision or blurred vision. No symptoms of TIA, syncope, seizures. PSYCH: No anxiety or depression. CARDIAC: No chest pain, angina, palpitation. RESPIRATORY: No shortness of breath, cough, or hemoptysis. GI: Present complaint of nausea, abdominal pain. No diarrhea, constipation. no symptoms of dysuria or hematuria, urgency or frequency. EXTREMITIES: Denies pain, edema. CONSTITUTIONAL: No fever or chills. HEMATOLOGICAL: No anemia, bleeding disorder. ENDOCRINE: No history of diabetes mellitus, history of hypothyroidism. SKIN: No rashes. MUSCULOSKELETAL: Arthritic symptoms. NEUROLOGICAL: Benign tremors. PHYSICAL EXAMINATION: Pleasant female present. No distress. Vital signs reveals temperature was 97.8, pulse 63, respirations 18, blood pressure 157/61, pulse ox 95 percent on room air. HEENT: Normocephalic. NECK: Supple. No JVD. Conjunctivae pink. Sclerae are difficult to assess. Oral cavity is moist. Neck reveals no JVD, carotid bruits or thyromegaly. CHEST: Clear to auscultation and percussion. Cardiac: Normal S1, S2 with no gallops, murmurs, rubs. ABDOMEN: Soft except for mild tenderness on deeper palpation of the right upper quadrant especially Man's point. No rebound tenderness. Bowel sounds are active. Extremities reveal no edema. No tenderness. Good pulses both upper and lower extremities. NEUROLOGIC: Awake, alert, oriented x3 with well-coordinated movements. LABORATORY DATA: Laboratory assessment reveals normal CBC. Chemistries normal. Troponins are negative. Lipase and amylase are normal. Bilirubin, alkaline phosphatase normal. Urinalysis is unremarkable. CT scan of the abdomen revealed dilated gallbladder and higginbotham colonic stool volume was high. The gallbladder was distended with mild indistinctiveness margins. Circumferentially, there is mild prominence of the intrahepatic biliary tree down to the expected position of the CBD. As mentioned above the ultrasound of the gallbladder, biliary ductal dilatation at 1 cm. Next, an gallbladder appears distended with thickened gallbladder wall. No pericholecystic fluid. ASSESSMENT: 1. Acute cholecystitis. 2. History of benign tremors. 3. Hypothyroidism on replacement therapy. 4. History of hyperlipidemia on medical therapy. PLAN: The patient at present is clinically stable. Continue present medical regimen. Patient is going to be admitted to the hospital, started on IV hydration, IV antibiotic. Consultation with the surgeon. Prognosis remains guarded. MMODL / IJN: [id number] /
[2018-10-17] MEDS ORDERED: LEVOTHYROXINE 75 MCG TAB PO SCH (06:30)
[2018-10-17] MEDS: SODIUM CHLORIDE 0.9% 1,000 ML IV SCH ×2 (06:30→17:32)
[2018-10-17 07:52] LABS: Basophils % (A) 1 %; Eosinophils # (A) 0.1 k/uL (0-0.7); Eosinophils % (A) 4 %; HCT 40.7 % (34.0-46.0); HGB 12.5 gm/dL (11.4-16.0); Hypochromasia Slight; Lymphocytes # (A) 0.9 k/uL (1.0-4.8); Lymphocytes % (A) 24 %; MCH 31.7 pg (25.0-35.0); MCHC 30.6 g/dL (31.0-37.0); MCV 103.6 fL (80.0-100.0); Macrocytosis Slight; Mean Platelet Volume 7.5; Monocytes # (A) 0.3 k/uL (0-1.0); Monocytes % (A) 9 %; Neutrophils % (A) 59 %; Platelet Count 205 k/uL (150-450); RBC 3.93 m/uL (3.80-5.40); WBC 3.5 k/uL (3.8-10.6)
[2018-10-17] MEDS: FLUTICASONE 50MCG/SPRAY NASAL 16GM EA NOSTRIL SCH (07:56)
[2018-10-17] MEDS: PROPRANOLOL LA 60 MG CAP.SA.24H PO SCH (07:59)
[2018-10-17] MEDS: LORATADINE 10 MG TAB PO SCH (07:59)
[2018-10-17] MEDS: DOCUSATE 100 MG CAP PO SCH ×2 (07:59→21:26)
--- NOTE | 2018-10-17 08:10 | P.GSCN ---
History of Present Illness Consult date: 10/17/18 History of present illness: 73-year-old female presented to the emergency department with complaints of abdominal pain. The abdominal pain began hours before her presentation. She states that the abdominal pain was in her upper abdomen. She complained of some nausea but denied any emesis episodes. She states that the pain began prior to lunch which included a sandwich. She denies any change in her bowel movements. She has never had this pain previously. She denies any fevers, chills, chest pain or shortness of breath. She does admit to having multiple previous abdominal surgeries including a bowel resection, hysterectomy, ovarian wedge resections. Currently, she states her pain has improved since she was admitted overnight. Workup has included an ultrasound of the abdomen along with a CT of the abdomen and pelvis. Ultrasound did show gallbladder wall thickening with a hydropic gallbladder and ductal dilation of 1 cm. Computed tomography scan also did show inflammatory changes with no evidence of pericholecystic fluid. Review of Systems All systems: negative Past Medical History Past Medical History: COPD, Hyperlipidemia, Pneumonia, Thyroid Disorder Additional Past Medical History / Comment(s): left wrist fx; nasal fx; benign essential tremors History of Any Multi-Drug Resistant Organisms: None Reported Past Surgical History: Appendectomy, Hysterectomy, Orthopedic Surgery Additional Past Surgical History / Comment(s): eye surgery for hole in macula, sagrario cataracts, rt foot sx Past Anesthesia/Blood Transfusion Reactions: Previous Problems w/ Anesthesia Additional Past Anesthesia/Blood Transfusion Reaction / Comm: trouble waking up Past Psychological History: No Psychological Hx Reported Smoking Status: Never smoker Past Alcohol Use History: Rare Past Drug Use History: None Reported - Past Family History Father Family Medical History: CVA/TIA Additional Family Medical History / Comment(s): from kidney failure in 1983 Mother Family Medical History: Myocardial Infarction ([place]) Additional Family Medical History / Comment(s): in 1996 Sister(s) Additional Family Medical History / Comment(s): trigeminal neuralgia Brother(s) Family Medical History: Pulmonary Embolus Medications and Allergies Home Medications Medication Instructions Recorded Confirmed Type Atorvastatin [Lipitor] 20 mg PO HS 07/05/17 10/16/18 History Citrucel Tablet 1 tab PO BID 07/05/17 10/16/18 History Docusate [Colace] 100 mg PO BID 07/05/17 10/16/18 History Fluticasone Nasal [place] [Flonase 2 spr EA NOSTRIL DAILY 07/05/17 10/16/18 History Nasal [place]] Folic Acid 0.8 mg PO Q48H 07/05/17 10/16/18 History Levothyroxine Sodium [Synthroid] 100 mcg PO SUMOWETHSA 07/05/17 10/16/18 History Levothyroxine Sodium [Synthroid] 150 mcg PO TUFR 07/05/17 10/16/18 History Loratadine [Claritin] 10 mg PO DAILY 07/05/17 10/16/18 History Multivitamins, Thera [Multivitamin 1 tab PO DAILY 07/05/17 10/16/18 History (formulary)] Primidone [Mysoline] 100 mg PO TID 07/05/17 10/16/18 History Propranolol HCl [Inderal [place]] 120 mg PO DAILY 07/05/17 10/16/18 History Propranolol [Inderal] 20 mg PO TID 07/05/17 10/16/18 History Topiramate [Topamax] 50 mg PO TID 07/05/17 10/16/18 History Cholecalciferol [Vitamin D3] 1,000 unit PO DAILY 10/16/18 10/16/18 History Propranolol [Inderal] 20 mg PO DAILY@1600 10/16/18 10/16/18 History Topiramate [Topamax] 50 mg PO DAILY@1600 10/16/18 10/16/18 History Allergies Allergy/AdvReac Type Severity Reaction Status Date / Time adhesive Allergy reddness Verified 10/16/18 14:52 Surgical - Exam Osteopathic Statement: *. No significant issues noted on an osteopathic structural exam other than those noted in the History and Physical/Consult. Vital Signs Temp Pulse Resp BP Pulse Ox 98.2 F 59 L 16 159/79 100 10/16/18 14:07 10/16/18 14:07 10/16/18 14:07 10/16/18 14:07 10/16/18 14:07 - General well developed, well nourished - Eyes PERRL, normal ocular movement - ENT normal mucosa - Neck trachea midline - Respiratory No difficulty with respiration - Abdomen Soft, tender to palpation in right upper quadrant, nondistended, no rebound, no guarding - Neurologic normal coordination - Psychiatric oriented to time, oriented to person, oriented to place Results - Labs 10/17/18 07:16 10/16/18 14:51 Abnormal Lab Results - Last 24 Hours (Table) 10/16/18 10/16/18 10/16/18 Range/Units 14:51 14:51 15:10 WBC (3.8-10.6) k/uL MCV 101.0 H (80.0-100.0) fL MCHC (31.0-37.0) g/dL Lymphocytes # 0.8 L (1.0-4.8) k/uL Glucose 101 H (74-99) mg/dL Urine Appearance Turbid H (Clear) 10/17/18 Range/Units 07:16 WBC 3.5 L (3.8-10.6) k/uL MCV 103.6 H (80.0-100.0) fL MCHC 30.6 L (31.0-37.0) g/dL Lymphocytes # 0.9 L (1.0-4.8) k/uL Glucose (74-99) mg/dL Urine Appearance (Clear) Diabetes panel 10/16/18 Range/Units 14:51 Sodium 138 (137-145) mmol/L Potassium 4.3 (3.5-5.1) mmol/L Chloride 102 (98-107) mmol/L Carbon Dioxide 27 (22-30) mmol/L BUN 16 (7-17) mg/dL Creatinine 0.90 (0.52-1.04) mg/dL Glucose 101 H (74-99) mg/dL Calcium 9.5 (8.4-10.2) mg/dL AST 27 (14-36) U/L ALT 13 (9-52) U/L Alkaline Phosphatase 69 (38-126) U/L Total Protein 6.5 (6.3-8.2) g/dL Albumin 3.9 (3.5-5.0) g/dL Calcium panel 10/16/18 Range/Units 14:51 Calcium 9.5 (8.4-10.2) mg/dL Albumin 3.9 (3.5-5.0) g/dL Pituitary panel 10/16/18 Range/Units 14:51 Sodium 138 (137-145) mmol/L Potassium 4.3 (3.5-5.1) mmol/L Chloride 102 (98-107) mmol/L Carbon Dioxide 27 (22-30) mmol/L BUN 16 (7-17) mg/dL Creatinine 0.90 (0.52-1.04) mg/dL Glucose 101 H (74-99) mg/dL Calcium 9.5 (8.4-10.2) mg/dL Adrenal panel 10/16/18 Range/Units 14:51 Sodium 138 (137-145) mmol/L Potassium 4.3 (3.5-5.1) mmol/L Chloride 102 (98-107) mmol/L Carbon Dioxide 27 (22-30) mmol/L BUN 16 (7-17) mg/dL Creatinine 0.90 (0.52-1.04) mg/dL Glucose 101 H (74-99) mg/dL Calcium 9.5 (8.4-10.2) mg/dL Total Bilirubin 0.3 (0.2-1.3) mg/dL AST 27 (14-36) U/L ALT 13 (9-52) U/L Alkaline Phosphatase 69 (38-126) U/L Total Protein 6.5 (6.3-8.2) g/dL Albumin 3.9 (3.5-5.0) g/dL - Imaging CT scan - abdomen: report reviewed, image reviewed US - abdomen: report reviewed, image reviewed (Reviewed both CT and ultrasound of the abdomen. There is notable thickening of the gallbladder wall. Ductal dilation is also present.) Assessment and Plan (1) Common bile duct dilation Narrative/Plan: Due to common bile duct dilation, will obtain a HIDA scan to evaluate for any obstructive process prior to surgical intervention for cholecystitis. Current Visit: Yes Status: Acute Code(s): K83.8 - OTHER SPECIFIED DISEASES OF BILIARY TRACT SNOMED Code(s): 092634360 (2) Upper abdominal pain Narrative/Plan: I did discuss the case in depth with the patient and the patient's primary care physician. The patient does have multiple previous abdominal surgeries that has likely resulted in adhesions. The patient is at an increased risk for an open cholecystectomy versus a laparoscopic cholecystectomy. Prior to any surgical intervention, we will obtain a HIDA scan to evaluate the ductal dilation and evaluate for any biliary obstruction. Laboratory values are currently pending and will be followed. Plan for surgical intervention if HIDA scan reveals no biliary obstruction. Current Visit: Yes Status: Acute Code(s): R10.10 - UPPER ABDOMINAL PAIN, UNSPECIFIED SNOMED Code(s): 47127877
[2018-10-17 08:14] LABS: ALT 18 U/L (9-52); AST 26 U/L (14-36); Albumin 3.1 g/dL (3.5-5.0); Alkaline Phosphatase 50 U/L (38-126); Anion Gap 3 mmol/L; Bilirubin, Delta 0.3 mg/dL (0.0-0.2); Bilirubin,Unconjugated 0.1 mg/dL (0.0-1.1); Blood Urea Nitrogen 17 mg/dL (7-17); Calcium 8.6 mg/dL (8.4-10.2); Carbon Dioxide 23 mmol/L (22-30); Chloride 114 mmol/L (98-107); Glucose 82 mg/dL (74-99); Potassium 4.7 mmol/L (3.5-5.1); Sodium 140 mmol/L (137-145); Total Bilirubin 0.4 mg/dL (0.2-1.3); Total Protein 5.6 g/dL (6.3-8.2)
[2018-10-17] MEDS: metroNIDAZOLE-NS PMX 500 MG in SALINE 1 100ML.BAG IVPB SCH ×2 (08:49→15:11)
[2018-10-17] MEDS ORDERED: CITRUCEL PO SCH (09:00)
[2018-10-17] MEDS ORDERED: PRIMIDONE 50 MG TAB PO SCH (09:00)
--- NOTE | 2018-10-17 13:17 | NM ---
EXAMINATION TYPE: NM hepatobiliary w EF DATE OF EXAM: 10/17/2018 COMPARISON: CT abdomen pelvis dated 10/16/2018. HISTORY: Cholecystitis. Right upper quadrant pain. TECHNIQUE: After the intravenous administration of 4.79 mCi Tc 99m Mebrofenin hepatobiliary scintigra phy is performed. Immediate images post injection. FINDINGS: There is satisfactory initial accumulation of tracer by the liver. The gallbladder is visualized wit hin 18 minutes. The small bowel activity is noted after ensure was given. At one hour 8 ounces of o ral ensure plus is given to mimic CCK and gallbladder ejection fraction is calculated at 25% , abnor mal. Therefore there is no scintigraphic evidence of cystic or common bile duct obstruction to sugge st acute cholecystitis or gallbladder dyskinesia. IMPRESSION: 1. Biliary dyskinesia with an abnormal biliary ejection fraction of 25%. 2. No evidence of acute or chronic cholecystitis.
[2018-10-17] MEDS: TOPIRAMATE 25 MG TAB PO SCH (16:00)
[2018-10-17] MEDS ORDERED: TOPIRAMATE 25 MG TAB PO SCH (16:00)
[2018-10-17] MEDS: PRIMIDONE 50 MG TAB PO SCH (16:00)
[2018-10-17] MEDS: PROPRANOLOL 20 MG TAB PO SCH (16:00)
--- NOTE | 2018-10-17 23:00 | PN ---
PROGRESS NOTE CHIEF COMPLAINT: Re-evaluation. HISTORY OF PRESENT ILLNESS: This 73-year-old was admitted to the hospital with a tender mass, right upper quadrant, centered at the Man's point. The patient has evidence suggestive of chronic cholecystitis, dilated bile duct. The patient is interestingly noted to have no gallstones. She is feeling better this morning. She was given Rocephin. She has continued to remain afebrile. The pain initially was improved. NEURO: Denies any headaches, dizziness. Does have tremors. PSYCH: No anxiety or depression. CARDIAC: No chest pain, angina, palpitation. RESPIRATORY: No shortness of breath or cough. GI: No nausea, vomiting, abdominal pain, diarrhea. : No symptoms of dysuria or hematuria. EXTREMITIES: No pain, edema. CONSTITUTIONAL: No fever or chills. PHYSICAL EXAMINATION: Pleasant female in no distress. Vital signs reveal temperature 97.9, pulse 52, respirations 16, blood pressure 94/50, pulse ox 97% on room air. Repeat blood pressure was 122/56. HEENT: Normocephalic. NECK: No JVD. CHEST: Clear to auscultation and percussion. CARDIAC: Normal S1 and S2 with no gallops, murmurs or rubs. ABDOMEN: Soft. Bowel sounds present. Extremities reveal no edema. No tenderness. Neurologically awake, alert, oriented with well-coordinated movements. LABORATORY ASSESSMENT: CBC reveals white count is down to 3.5, hemoglobin 12.5, platelet count 205. Electrolytes are normal, hepatic function normal. The patient had a HIDA scan ordered by Dr. Gillette. The patient's HIDA scan reveals an ejection fraction of 25%. ASSESSMENT: 1. Acute cholecystitis. 2. Essential tremors. 3. Hypertension, controlled. PLAN: The patient is stable. Continue present medical regimen. Patient's condition was discussed with the patient. Prognosis guarded. The patient is planned for cholecystectomy tomorrow, probably open. Patient's condition was discussed with the patient. Reviewed status. MMODL / IJN: [id number] /
[2018-10-18] MEDS: metroNIDAZOLE-NS PMX 500 MG in SALINE 1 100ML.BAG IVPB SCH ×3 (00:30→16:13)
[2018-10-18] MEDS: SODIUM CHLORIDE 0.9% 1,000 ML IV SCH ×2 (05:24→12:12)
[2018-10-18] MEDS ORDERED: SODIUM CHLORIDE 0.9% 1,000 ML IV ONE (08:09)
[2018-10-18] MEDS ORDERED: HEPARIN SODIUM,PORCINE 5,000 UNIT/ML 1 ML VIAL ONE (08:09)
[2018-10-18] MEDS ORDERED: HYDROmorphone (PF) 1 MG/ML ONE (08:09)
[2018-10-18] MEDS ORDERED: PROPOFOL 10 MG/ML 20 ML VIAL IV ONE (08:09)
[2018-10-18] MEDS ORDERED: LIDOCAINE 1% INJ 10MG/ML (20 ML MDV) ONE (08:09)
[2018-10-18] MEDS ORDERED: GLYCOPYRROLATE 0.2 MG/ML 2 ML VIAL ONE (08:09)
[2018-10-18] MEDS ORDERED: fentaNYL (PF) 50 MCG/ML 2 ML AMP ONE (08:09)
[2018-10-18] MEDS ORDERED: SUCCINYLCHOLINE CHLORIDE 100 MG/5 ML SYR IV ONE (08:09)
[2018-10-18] MEDS ORDERED: ROCURONIUM BROMIDE 10 MG/ML 10 ML VIAL IV ONE (08:09)
[2018-10-18] MEDS ORDERED: NEOSTIGMINE 1 MG/ML 10 ML VIAL ONE (08:09)
[2018-10-18] MEDS ORDERED: MORPHINE SULFATE 2 MG/ML SYRINGE IV PRN (08:18)
[2018-10-18] MEDS ORDERED: BUPIVACAIN-EPI 0.5%-1:200,000 30 ML VIAL SQ ONE ×2 (08:29)
--- NOTE | 2018-10-18 09:17 | P.OP ---
Date of Procedure: 10/18/18 Preoperative Diagnosis: Cholecystitis Postoperative Diagnosis: Cholecystitis Procedure(s) Performed: Laparoscopic cholecystectomy Anesthesia: MAHNAZ Surgeon: Austin Gillette Pathology: other (Gallbladder and contents) Condition: stable Disposition: floor Indications for Procedure: 73-year-old female presented to the emergency department with complaints of right upper quadrant pain. Multiple imaging modalities revealed cholecystitis along with clinical exam. Secondary to this, patient was offered a laparoscopic cholecystectomy. The patient was explained the risks, benefits and alternatives to the procedure and did provide consent prior to attending the operating suite. Operative Findings: Inflamed gallbladder Description of Procedure: The patient was brought into the operating suite and placed in supine position on the operating table. Sedation was provided by anesthesia and the patient underwent endotracheal intubation. The patient was then prepped and draped in regular sterile fashion. Due to previous abdominal surgery, the abdomen was entered at palmers point in the left upper quadrant under direct visualization using a 5 mm Visiport. Pneumoperitoneum was achieved. There was no evidence of significant amount of adhesions. A 12 mm trocar was then placed in the infraumbilical region. 3 additional 5 mm ports were placed. One was placed in the subxiphoid region and 2 in the right upper quadrant. The gallbladder was then grasped and retracted and the patient was positioned appropriately. Dissection was carried to free the gallbladder from the surrounding adhesions. The cystic duct and cystic artery were both skeletonized. The cystic duct was noted to be dilated and a stapler device was used across the cystic duct. The cystic artery was skeletonized and 2 clips were placed proximally one was placed distally and the cystic artery was ligated. Electrocautery was then used to dissect the gallbladder from the gallbladder fossa. The gallbladder was then placed and an Endo Catch bag and removed from the abdomen. Irrigation was then used in the right upper quadrant. Hemostasis was maintained. Pneumoperitoneum was released. The fascial incision at the 12 mm port site was closed with a [id number] Vicryl suture. All skin incisions were closed with 4-0 Vicryl subcuticular suture. The patient was awakened in the operating suite and taken to postanesthesia care unit in stable condition.
[2018-10-18] MEDS: PRIMIDONE 50 MG TAB PO SCH ×3 (11:49→16:13)
[2018-10-18] MEDS: PROPRANOLOL 20 MG TAB PO SCH ×3 (11:49→16:13)
[2018-10-18] MEDS: HEPARIN SODIUM,PORCINE 5,000 UNIT/ML 1 ML VIAL SQ SCH ×2 (11:49→16:13)
[2018-10-18] MEDS: LACTATED RINGERS 1,000 ML IV SCH (11:50)
[2018-10-18] MEDS: TOPIRAMATE 25 MG TAB PO SCH ×3 (11:50→16:13)
[2018-10-18] MEDS: PROPRANOLOL LA 60 MG CAP.SA.24H PO SCH (12:08)
[2018-10-18] MEDS: LORATADINE 10 MG TAB PO SCH (12:09)
[2018-10-18] MEDS: DOCUSATE 100 MG CAP PO SCH ×2 (12:09→20:18)
[2018-10-18] MEDS: FLUTICASONE 50MCG/SPRAY NASAL 16GM EA NOSTRIL SCH (12:10)
[2018-10-18] MEDS: LEVOTHYROXINE 100 MCG TAB PO SCH (12:11)
--- NOTE | 2018-10-18 12:25 | P.PN ---
Subjective Progress Note Date: 10/18/18 Principal diagnosis: This 73-year-old female was admitted to the hospital with sudden onset abdominal pain was centered around right upper quadrant with a positive Man' s sign. Ultrasound CAT scan of the abdomen are more suggestive of acute on chronic cholecystitis with no gallstones and possibility of having passed a small stone was still entertained. The patient had dilated bile duct. Patient was started on Rocephin fluids and was referred to the surgeon. He did request a HIDA scan. Bladder scan suggested 25% ejection fraction. Patient had no fever or chills no white count. Patient is taken into surgery today and the gallbladder was removed laparoscopically. Patient has tolerated the surgery well. I'm seeing the patient postoperatively. She denies any significant symptoms of abdominal pain nausea. She does have a history of chronic essential hypertension fairly advanced on multiple medications. She does have a history of chronic constipation. Requesting medication for the same. We will place her on a Dulcolax suppository later today. REVIEW OF SYSTEMS: Neuro: Denies any headaches dizziness. Psych: Denies anxiety depression feels oriented. Cardiac: Denies chest pain and angina palpitations. Respiratory: Denies shortness of breath cough. GI: Denies nausea vomiting , post op minimal abdominal pain. No diarrhea . Chronic constipation, no bowel movement yet. : Denies dysuria hematuria. Extremities: No pain edema Skin: Intact. Constitutional: No fever, chills. Objective - Vital Signs Vital signs: Vital Signs Temp 96.7 F L 10/18/18 10:50 Pulse 51 L 10/18/18 10:50 Resp 16 10/18/18 10:50 BP 143/65 10/18/18 10:50 Pulse Ox 97 10/18/18 10:50 Intake & Output 10/17/18 10/18/18 10/18/18 18:59 06:59 18:59 Intake Total 2130 1840 700 Output Total 10 Balance 2130 1840 690 Intake: IV 700 Intake, IV Titration 1050 1300 Amount Sodium Chloride 0.9% 1, 800 1200 000 ml @ 100 mls/hr IV . Q10H [facility] Rx#:[id number] cefTRIAXone 1,000 mg In 50 Sodium Chloride 0.9% 50 ml @ 100 mls/hr IVPB Q24HR [facility] Rx#:[id number] metroNIDAZOLE-NS PMX 500 200 100 mg In Saline 1 100ml.bag @ 100 mls/hr IVPB Q8HR [facility] Rx#:[id number] Oral 1080 540 Output: Estimated Blood Loss 10 Other: Voiding Method Toilet Toilet Toilet Diaper Diaper Diaper # Voids 3 2 PHYSICAL EXAMINATION: Cooperative, at present in no acute distress. HEENT: Neck supple. No JVD. Chest: Clear to auscultation percussion. Cardiac: Normal S1-S2 no gallops no murmur . Abdomen: Minimal tendernessbowel sounds present. Extremities: No edema no tenderness Neurologically: Awake, alert, oriented with well-coordinated movements. - Labs CBC & Chem 7: 10/17/18 07:16 10/17/18 07:16 Assessment and Plan Assessment: ASSESSMENT: 1. Acute cholecystitis. 2. Status post laparoscopic cholecystectomy today. 3. Benign essential tremors. 4. Chronic constipation. PLAN: Continue present medical regimen. Patient's condition discussed with the patient and prognosis remains guarded potential discharge home tomorrow patient will be given Dulcolax suppository later today.
[2018-10-18] MEDS: BISACODYL 10 MG SUPP RECTAL SCH (20:19)
[2018-10-19] MEDS: HEPARIN SODIUM,PORCINE 5,000 UNIT/ML 1 ML VIAL SQ SCH ×2 (00:36→08:37)
[2018-10-19] MEDS: metroNIDAZOLE-NS PMX 500 MG in SALINE 1 100ML.BAG IVPB SCH ×2 (00:36→09:56)
[2018-10-19] MEDS: SODIUM CHLORIDE 0.9% 1,000 ML IV SCH (03:39)
[2018-10-19] MEDS: LEVOTHYROXINE 100 MCG TAB PO SCH (06:05)
[2018-10-19 07:20] LABS: Basophils % (A) 0 %; Eosinophils # (A) 0.1 k/uL (0-0.7); Eosinophils % (A) 2 %; HCT 39.1 % (34.0-46.0); HGB 12.7 gm/dL (11.4-16.0); Lymphocytes # (A) 0.8 k/uL (1.0-4.8); Lymphocytes % (A) 16 %; MCH 32.5 pg (25.0-35.0); MCHC 32.4 g/dL (31.0-37.0); MCV 100.3 fL (80.0-100.0); Mean Platelet Volume 7.8; Monocytes # (A) 0.4 k/uL (0-1.0); Monocytes % (A) 8 %; Neutrophils # (A) 3.7 k/uL (1.3-7.7); Neutrophils % (A) 71 %; Platelet Count 194 k/uL (150-450); RDW 13.1 % (11.5-15.5); WBC 5.2 k/uL (3.8-10.6)
[2018-10-19 07:42] LABS: ALT 15 U/L (9-52); AST 28 U/L (14-36); Alkaline Phosphatase 53 U/L (38-126); Anion Gap 6 mmol/L; Bilirubin, Delta 0.3 mg/dL (0.0-0.2); Bilirubin,Unconjugated 0.2 mg/dL (0.0-1.1); Blood Urea Nitrogen 9 mg/dL (7-17); Calcium 8.5 mg/dL (8.4-10.2); Carbon Dioxide 24 mmol/L (22-30); Chloride 110 mmol/L (98-107); Glucose 102 mg/dL (74-99); Potassium 3.8 mmol/L (3.5-5.1); Sodium 140 mmol/L (137-145); Total Bilirubin 0.5 mg/dL (0.2-1.3); Total Protein 5.6 g/dL (6.3-8.2)
[2018-10-19] MEDS: LORATADINE 10 MG TAB PO SCH (08:36)
[2018-10-19] MEDS: PROPRANOLOL 20 MG TAB PO SCH ×2 (08:36→11:31)
[2018-10-19] MEDS: PRIMIDONE 50 MG TAB PO SCH ×2 (08:36→11:31)
[2018-10-19] MEDS: TOPIRAMATE 25 MG TAB PO SCH ×2 (08:36→11:31)
[2018-10-19] MEDS: PROPRANOLOL LA 60 MG CAP.SA.24H PO SCH (08:36)
[2018-10-19] MEDS: DOCUSATE 100 MG CAP PO SCH (08:36)
[2018-10-19] MEDS: FLUTICASONE 50MCG/SPRAY NASAL 16GM EA NOSTRIL SCH (08:37)
[2018-10-19] MEDS: LACTATED RINGERS 1,000 ML IV SCH (08:37)
--- NOTE | 2018-10-19 10:43 | P.PN ---
Subjective Progress Note Date: 10/19/18 Patient seen and examined at bedside. Very comfortable. Tolerating liquid diet. Pain well-controlled. Objective - Vital Signs Vital signs: Vital Signs Temp 98.6 F 10/19/18 05:00 Pulse 60 10/19/18 05:00 Resp 16 10/19/18 05:00 BP 137/66 10/19/18 05:00 Pulse Ox 96 10/19/18 05:00 Intake & Output 10/18/18 10/19/18 10/19/18 18:59 06:59 18:59 Intake Total 2300 2019 Output Total 10 Balance 2290 2019 Intake: IV 700 Intake, IV Titration 1400 900 Amount Lactated Ringers 1,000 ml 600 @ 20 mls/hr IV .Q24H [facility] Rx#:[id number] Sodium Chloride 0.9% 1, 600 900 000 ml @ 75 mls/hr IV . [id number] [facility] Rx#:[id number] cefTRIAXone 1,000 mg In 100 Sodium Chloride 0.9% 50 ml @ 100 mls/hr IVPB Q24HR [facility] Rx#:[id number] metroNIDAZOLE-NS PMX 500 100 mg In Saline 1 100ml.bag @ 100 mls/hr IVPB Q8HR [facility] Rx#:[id number] Oral 200 1120 Output: Estimated Blood Loss 10 Other: Voiding Method Toilet Toilet Toilet Diaper Diaper Diaper # Voids 2 3 - Constitutional General appearance: Present: cooperative - Respiratory Details: No difficulty with respiration - Gastrointestinal Gastrointestinal Comment(s): Soft, appropriate tenderness, nondistended, no rebound, no guarding, incision sites are clean, dry and intact - Psychiatric Psychiatric: Present: A&O x's 3 - Labs CBC & Chem 7: 10/19/18 06:44 10/19/18 06:44 Labs: Abnormal Lab Results - Last 24 Hours (Table) 10/19/18 10/19/18 Range/Units 06:44 06:44 MCV 100.3 H (80.0-100.0) fL Lymphocytes # 0.8 L (1.0-4.8) k/uL Chloride 110 H (98-107) mmol/L Glucose 102 H (74-99) mg/dL Delta Bilirubin 0.3 H (0.0-0.2) mg/dL Total Protein 5.6 L (6.3-8.2) g/dL Albumin 3.0 L (3.5-5.0) g/dL Assessment and Plan (1) Common bile duct dilation Current Visit: Yes Status: Acute Code(s): K83.8 - OTHER SPECIFIED DISEASES OF BILIARY TRACT SNOMED Code(s): 029110917 (2) Upper abdominal pain Narrative/Plan: Patient is postoperative day #1 from laparoscopic cholecystectomy - Advance to soft diet - Stable for discharge - Discussed postoperative care with the patient. Weight restriction limit is no greater than 7 pounds. Patient is able to shower and pat dry. - Follow up with me in 10-14 days. Current Visit: Yes Status: Acute Code(s): R10.10 - UPPER ABDOMINAL PAIN, UNSPECIFIED SNOMED Code(s): 00943676
--- NOTE | 2018-10-19 11:07 | P.DS ---
Providers Date of admission: 10/16/18 19:54 Expected date of discharge: 10/19/18 Attending physician: Jose De Jesus Medina Consults: 10/16/18 22:42 Consult Physician Urgent Consulting Provider: [facility] Consult Reason/Comments: cholecystitis Do you want consulting provider notified?: Already Contacted Primary care physician: Jose De Jesus Medina [facility] Course: This 73-year-old female was admitted to the hospital with a sudden onset right upper quadrant pain. An ultrasound of the abdomen and a CAT scan of the abdomen were indicative of a dilated gallbladder with some wall thickening. There was also dilatation of the bile duct. A HIDA scan revealed ejection fraction of 25%. The patient was seen by general surgeon Dr. Gillette. Patient was started on IV antibiotics the time of admission. The patient subsequently taken in for a laparoscopic cholecystectomy. The patient's vital signs remained stable her white count is normal. She has no symptoms of nausea vomiting abdominal pain at this time of discharge. She had a very small bowel movement yesterday. She does have a history of chronic constipation has again noted on the CAT scan a significant stool load noted in the colon. Patient also has an underlying history of chronic familial benign tremors. She is on multiple medications for the same. Postop uneventful. Patient's can be discharged home. Final diagnosis: 1. Acute cholecystitis 2. Familial benign essential tremors 3. Hyperlipidemia Patient Condition at Discharge: Good Plan - Discharge Summary Discharge Rx Participant: No New Discharge Prescriptions: Continue Fluticasone Nasal [place] [Flonase Nasal [place]] 2 spr EA NOSTRIL DAILY Docusate [Colace] 100 mg PO BID Propranolol [Inderal] 20 mg PO TID Topiramate [Topamax] 50 mg PO TID Propranolol HCl [Inderal LA] 120 mg PO DAILY Loratadine [Claritin] 10 mg PO DAILY Primidone [Mysoline] 100 mg PO TID Multivitamins, Thera [Multivitamin (formulary)] 1 tab PO DAILY Folic Acid 0.8 mg PO Q48H Levothyroxine Sodium [Synthroid] 100 mcg PO SUMOWETHSA Levothyroxine Sodium [Synthroid] 150 mcg PO TUFR Atorvastatin [Lipitor] 20 mg PO HS Citrucel Tablet 1 tab PO BID Topiramate [Topamax] 50 mg PO DAILY@1600 Propranolol [Inderal] 20 mg PO DAILY@1600 Cholecalciferol [Vitamin D3] 1,000 unit PO DAILY Discharge Medication List Atorvastatin [Lipitor] 20 mg PO HS 07/05/17 [History] Citrucel Tablet 1 tab PO BID 07/05/17 [History] Docusate [Colace] 100 mg PO BID 07/05/17 [History] Fluticasone Nasal [place] [Flonase Nasal [place]] 2 spr EA NOSTRIL DAILY 07/05/17 [ History] Folic Acid 0.8 mg PO Q48H 07/05/17 [History] Levothyroxine Sodium [Synthroid] 100 mcg PO SUMOWETHSA 07/05/17 [History] Levothyroxine Sodium [Synthroid] 150 mcg PO TUFR 07/05/17 [History] Loratadine [Claritin] 10 mg PO DAILY 07/05/17 [History] Multivitamins, Thera [Multivitamin (formulary)] 1 tab PO DAILY 07/05/17 [History ] Primidone [Mysoline] 100 mg PO TID 07/05/17 [History] Propranolol HCl [Inderal LA] 120 mg PO DAILY 07/05/17 [History] Propranolol [Inderal] 20 mg PO TID 07/05/17 [History] Topiramate [Topamax] 50 mg PO TID 07/05/17 [History] Cholecalciferol [Vitamin D3] 1,000 unit PO DAILY 10/16/18 [History] Propranolol [Inderal] 20 mg PO DAILY@1600 10/16/18 [History] Topiramate [Topamax] 50 mg PO DAILY@1600 10/16/18 [History] Follow up Appointment(s)/Referral(s): Jose De Jesus Medina MD [Primary Care Provider] - 1-2 days Austin Gillette DO [Doctor of Osteopathic Medicine] - 1 Week
[2018-10-19] MEDS: BISACODYL 10 MG SUPP RECTAL SCH (11:31)
[2018-10-19 12:12] VITALS: BP 141/54; PULSE 57; RESP 17; TEMP 97.8
--- NOTE | 2018-10-22 11:34 | CDI ---
Documentation Clarification Form Date: 10/22/18 From: Kamila Alex Meliza Lozoya, Anesthesia Associate Hours-8:30 am & 5 pm MSteven Admit Date: 10/16/2018 7:54:00 PM Patient Name: Farnaz Vargas Visit Number: [id number] Discharge Date: 10/19/2018 1:30:00 PM ATTENTION: The Clinical Documentation Specialists (CDI) and [facility] Coding Staff appreciate your assistance in clarifying documentation. Please respond to the clarification below the line at the bottom and electronically sign. The CDI & [facility] Coding staff will review the response and follow-up if needed. Please note: Queries are made part of the Legal Health Record. If you have any questions, please contact the author of this message via ITS. Dr. Jose De Jesus Medina The final diagnosis of the pathology report states: chronic cholecystitis. DS states: Acute cholecystitis Patient history/risk factors: hypothyroidism, COPD, hyperlipidemia, tremor, asthma, HTN Clinical Indicators: Treatment: Lap kenia In your professional opinion, do you agree with the pathology report diagnosis of chronic cholecystitis? Yes No Other (please specify) Unable to determine MTDD
--- NOTE | 2018-10-22 11:46 | CDI ---
Documentation Clarification Form Date: 10/22/2018 11:45:00 AM From: Kamila Johnson Meliza Lozoya, Senior Solutions Architect Hours-8:30 am & 5 pm MSteven Admit Date: 10/16/2018 7:54:00 PM Patient Name: Farnaz Vargas Visit Number: [id number] Discharge Date: 10/19/2018 1:30:00 PM ATTENTION: The Clinical Documentation Specialists (CDI) and [facility] Coding Staff appreciate your assistance in clarifying documentation. Please respond to the clarification below the line at the bottom and electronically sign. The CDI & [facility] Coding staff will review the response and follow-up if needed. Please note: Queries are made part of the Legal Health Record. If you have any questions, please contact the author of this message via ITS. Dr. Jose De Jesus Medina 10/16 US abdomen limited: Given wall thickening, gallbladder hydrops, and positive sonographic Man sign, acute cholecystitis is difficult to exclude. Surgical consult: documents the US findings. Due to common bile duct dilation, will obtain HIDA scan to evaluate for any obstructive process prior surgical intervention for cholecystitis. CT ABD: Biliary dyskinesia with an abnormal biliary ejection fraction or 25%. Hydrops of gallbladder ruled in Hydrops of gallbladder ruled out Other specified diagnosis Unable to determine (Last Revision: February 2018) MTDD
--- NOTE | 2018-10-22 11:59 | CDI ---
Documentation Clarification Form Date: 10/22/18 From: Kamila Alex Meliza Lozoya, Food Assembler [employer] Kitchen Hours-8:30 am & 5 pm M-Juan Admit Date: 10/16/2018 7:54:00 PM Patient Name: Farnaz Vargas Visit Number: [id number] Discharge Date: 10/19/2018 1:30:00 PM ATTENTION: The Clinical Documentation Specialists (CDI) and [facility] Coding Staff appreciate your assistance in clarifying documentation. Please respond to the clarification below the line at the bottom and electronically sign. The CDI & [facility] Coding staff will review the response and follow-up if needed. Please note: Queries are made part of the Legal Health Record. If you have any questions, please contact the author of this message via ITS. Dr. Jose De Jesus Medina Chronic atrial fibrillation is documented in the H&P, no further documentation in the chart. History/Risk Factors: GB disease, COPD, HTN, hypothyroidism, tremor, asthma EKG: sinus bradycardia Medications: Inderal 20mg TID, Inderal LA 120mg po daily Chronic atrial fibrillation Persistent atrial fibrillation Paroxysmal atrial fibrillation Other specified Unable to determine MTDD
--- NOTE | 2018-10-24 10:34 | CDI ---
Documentation Clarification Form Date: 10/24/2018 From: Kamila Alex Meliza Lozoya, Tunnel Miner Hours-8:30 am & 5 pm MSteven Admit Date: 10/16/2018 7:54:00 PM Patient Name: Farnaz Vargas Visit Number: [id number] Discharge Date: 10/19/2018 1:30:00 PM ATTENTION: The Clinical Documentation Specialists (CDI) and [facility] Coding Staff appreciate your assistance in clarifying documentation. Please respond to the clarification below the line at the bottom and electronically sign. The CDI & [facility] Coding staff will review the response and follow-up if needed. Please note: Queries are made part of the Legal Health Record. If you have any questions, please contact the author of this message via ITS. Dr. Jose De Jesus Medina The final diagnosis of the pathology report states: chronic cholecystitis. DS states: Acute cholecystitis Patient history/risk factors: hypothyroidism, COPD, hyperlipidemia, tremor, asthma, HTN Clinical Indicators: Treatment: Lap kenia In your professional opinion, do you agree with the pathology report diagnosisi of chronic cholecystitis? Yes No Other (please specify) Unable to determine MTDD
--- NOTE | 2018-10-24 10:39 | CDI ---
Documentation Clarification Form Date: 10/22/2018 11:45:00 AM From: Kamila Johnson Meliza Lozoya, Building Insulation Installer Hours-8:30 am & 5 pm MSteven Admit Date: 10/16/2018 7:54:00 PM Patient Name: Farnaz Vargas Visit Number: [id number] Discharge Date: 10/19/2018 1:30:00 PM ATTENTION: The Clinical Documentation Specialists (CDI) and [facility] Coding Staff appreciate your assistance in clarifying documentation. Please respond to the clarification below the line at the bottom and electronically sign. The CDI & [facility] Coding staff will review the response and follow-up if needed. Please note: Queries are made part of the Legal Health Record. If you have any questions, please contact the author of this message via ITS. Dr. Jose De Jesus Medina 10/16 US abdomen limited: Given wall thickening, gallbladder hydrops, and positive sonographic Man sign, acute cholecystitis is difficult to exclude. Surgical consult: documents the US findings. Due to common bile duct dilation, will obtain HIDA scan to evaluate for any obstructive process prior surgical intervention for cholecystitis. CT ABD: Biliary dyskinesia with an abnormal biliary ejection fraction or 25%. Hydrops of gallbladder ruled in Hydrops of gallbladder ruled out Other specified diagnosis Unable to determine MTDD
--- NOTE | 2018-10-24 10:42 | CDI ---
Documentation Clarification Form Date: 10/22/2018 11:57:00 AM From: Kamila Alex Meliza Lozoya, Physicist Cryogenics Hours-8:30 am & 5 pm MSteven Admit Date: 10/16/2018 7:54:00 PM Patient Name: Farnaz Vargas Visit Number: [id number] Discharge Date: 10/19/2018 1:30:00 PM ATTENTION: The Clinical Documentation Specialists (CDI) and [facility] Coding Staff appreciate your assistance in clarifying documentation. Please respond to the clarification below the line at the bottom and electronically sign. The CDI & [facility] Coding staff will review the response and follow-up if needed. Please note: Queries are made part of the Legal Health Record. If you have any questions, please contact the author of this message via ITS. Dr. Jose De Jesus Medina Chronic atrial fibrillation is documented in the H&P, no further documentation in the chart. History/Risk Factors: GB disease, COPD, HTN, hypothyroidism, tremor, asthma EKG: sinus bradycardia Medications: Inderal 20mg TID, Inderal LA 120mg po daily Chronic atrial fibrillation Persistent atrial fibrillation Paroxysmal atrial fibrillation Other specified Unable to determine MTDD
--- NOTE | 2018-10-28 10:56 | CDI ---
Documentation Clarification Form Date: 10/28/2018 From: Kamila Alex Meliza Lozoya, Dance Studio Manager Hours-8:30 am & 5 pm M-F Admit Date: 10/16/2018 7:54:00 PM Patient Name: Farnaz Vargas Visit Number: [id number] Discharge Date: 10/19/2018 1:30:00 PM ATTENTION: The Clinical Documentation Specialists (CDI) and [facility] Coding Staff appreciate your assistance in clarifying documentation. Please respond to the clarification below the line at the bottom and electronically sign. The CDI & [facility] Coding staff will review the response and follow-up if needed. Please note: Queries are made part of the Legal Health Record. If you have any questions, please contact the author of this message via ITS. Dr. Austin Gillette The final diagnosis of the pathology report states: chronic cholecystitis. DS states: Acute cholecystitis Patient history/risk factors: hypothyroidism, COPD, hyperlipidemia, tremor, asthma, HTN Treatment: Lap kenia In your professional opinion, do you agree with the pathology report diagnosisi of chronic cholecystitis? Unable to determine The patient presented with symptoms of acute cholecystitis, however, it is likely that the patient also had chronic cholecystitis with her symptom history. MTDD
--- NOTE | 2018-10-28 11:14 | CDI ---
Documentation Clarification Form Date: 10/28/2018 From: Kamila Alex Meliza Lozoya, Frame Operator Hours-8:30 am & 5 pm M-F Admit Date: 10/16/2018 7:54:00 PM Patient Name: Farnaz Vargas Visit Number: [id number] Discharge Date: 10/19/2018 1:30:00 PM ATTENTION: The Clinical Documentation Specialists (CDI) and [facility] Coding Staff appreciate your assistance in clarifying documentation. Please respond to the clarification below the line at the bottom and electronically sign. The CDI & [facility] Coding staff will review the response and follow-up if needed. Please note: Queries are made part of the Legal Health Record. If you have any questions, please contact the author of this message via ITS. Dr. Austin Gillette 10/16 US abdomen limited: Given wall thickening, gallbladder hydrops, and positive sonographic Man sign, acute cholecystitis is difficult to exclude. Surgical consult: documents the US findings. Due to common bile duct dilation, will obtain HIDA scan to evaluate for any obstructive process prior surgical intervention for cholecystitis. CT ABD: Biliary dyskinesia with an abnormal biliary ejection fraction or 25%. Hydrops of gallbladder is not able to be accurately diagnosed with HIDA. There was no obstructive finding on HIDA. MTDD
--- NOTE | 2018-11-01 13:26 | P.DS ---
Providers Date of admission: 10/16/18 19:54 Attending physician: Jose De Jesus Medina Consults: 10/16/18 22:42 Consult Physician Urgent Consulting Provider: [facility] Consult Reason/Comments: cholecystitis Do you want consulting provider notified?: Already Contacted Primary care physician: Jose De Jesus eMdina [place] [facility] Course: This is an addendum to the discharge summary. Patient's clinical findings were very strongly suggestive of acute cholecystitis and I believe the patient did have bad despite pathology report of chronic cholecystitis. Patient had clear clinical signs of acute sudden onset pain with point tenderness with Man's point. Hydrops was diagnosed on ultrasound. HIDA scan and reveals low ejection fraction. Hydrops is still a possibility. No clinical obstructions noted. It would mean the patient may have some inflamed gallbladder that ejection fraction was low. It is an error in the H&P. The patient has history of chronic mild intermittent bronchial asthma not atrial fibrillation. Patient Condition at Discharge: Good Plan - Discharge Summary Discharge Rx Participant: No New Discharge Prescriptions: Continue Fluticasone Nasal [place] [Flonase Nasal [place]] 2 spr EA NOSTRIL DAILY Docusate [Colace] 100 mg PO BID Propranolol [Inderal] 20 mg PO TID Topiramate [Topamax] 50 mg PO TID Propranolol HCl [Inderal LA] 120 mg PO DAILY Loratadine [Claritin] 10 mg PO DAILY Primidone [Mysoline] 100 mg PO TID Multivitamins, Thera [Multivitamin (formulary)] 1 tab PO DAILY Folic Acid 0.8 mg PO Q48H Levothyroxine Sodium [Synthroid] 100 mcg PO SUMOWETHSA Levothyroxine Sodium [Synthroid] 150 mcg PO TUFR Atorvastatin [Lipitor] 20 mg PO HS Citrucel Tablet 1 tab PO BID Topiramate [Topamax] 50 mg PO DAILY@1600 Propranolol [Inderal] 20 mg PO DAILY@1600 Cholecalciferol [Vitamin D3] 1,000 unit PO DAILY Discharge Medication List Atorvastatin [Lipitor] 20 mg PO HS 07/05/17 [History] Citrucel Tablet 1 tab PO BID 07/05/17 [History] Docusate [Colace] 100 mg PO BID 07/05/17 [History] Fluticasone Nasal [place] [Flonase Nasal [place]] 2 spr EA NOSTRIL DAILY 07/05/17 [ History] Folic Acid 0.8 mg PO Q48H 07/05/17 [History] Levothyroxine Sodium [Synthroid] 100 mcg PO SUMOWETHSA 07/05/17 [History] Levothyroxine Sodium [Synthroid] 150 mcg PO TUFR 07/05/17 [History] Loratadine [Claritin] 10 mg PO DAILY 07/05/17 [History] Multivitamins, Thera [Multivitamin (formulary)] 1 tab PO DAILY 07/05/17 [History ] Primidone [Mysoline] 100 mg PO TID 07/05/17 [History] Propranolol HCl [Inderal LA] 120 mg PO DAILY 07/05/17 [History] Propranolol [Inderal] 20 mg PO TID 07/05/17 [History] Topiramate [Topamax] 50 mg PO TID 07/05/17 [History] Cholecalciferol [Vitamin D3] 1,000 unit PO DAILY 10/16/18 [History] Propranolol [Inderal] 20 mg PO DAILY@1600 10/16/18 [History] Topiramate [Topamax] 50 mg PO DAILY@1600 10/16/18 [History] Follow up Appointment(s)/Referral(s): Jose De Jesus Medina MD [Primary Care Provider] - 1-2 days (Patient to call Dr. Medina's office Saturday to schedule follow up appointment. The office is closed at time of discharge. ) Austin Gillette DO [Doctor of Osteopathic Medicine] - 1 Week (Patient to call Dr. Gillette's office Saturday to schedule follow up appointment. The office is closed at time of discharge. ) Patient Instructions/Handouts: Laparoscopic Cholecystectomy (DC) Discharge Disposition: HOME SELF-CARE
== END 2018-10-19 13:30 | disposition home or self-care (01) | DRG 419 ==
LOC: EC 13:53 → 3NMEDONC 19:54
PROVIDERS: ADMIT Internal Medicine; ATTEND Internal Medicine
PROC: 0FT44ZZ Resection of Gallbladder, Percutaneous Endoscopic Approach (ICD-10-PCS; principal; 2018-10-18 08:00)
DX: K81.0 Acute cholecystitis (principal); I48.2 Chronic atrial fibrillation; J44.9 Chronic obstructive pulmonary disease, unspecified; E03.9 Hypothyroidism, unspecified; E78.5 Hyperlipidemia, unspecified; G25.0 Essential tremor; J45.20 Mild intermittent asthma, uncomplicated; I10 Essential (primary) hypertension; K81.1 Chronic cholecystitis; K21.9 Gastro-esophageal reflux disease without esophagitis; K58.1 Irritable bowel syndrome with constipation; M19.90 Unspecified osteoarthritis, unspecified site; Z79.890 Hormone replacement therapy; Z79.899 Other long term (current) drug therapy; Z86.19 Personal history of other infectious and parasitic diseases; Z90.721 Acquired absence of ovaries, unilateral; Z90.710 Acquired absence of both cervix and uterus; Z87.01 Personal history of pneumonia (recurrent); Z87.81 Personal history of (healed) traumatic fracture; Z98.42 Cataract extraction status, left eye; Z98.41 Cataract extraction status, right eye; Z91.048 Other nonmedicinal substance allergy status; Z82.49 Family history of ischemic heart disease and other diseases of the circulatory system; Z81.8 Family history of other mental and behavioral disorders; Z83.3 Family history of diabetes mellitus; Z84.1 Family history of disorders of kidney and ureter; Z80.8 Family history of malignant neoplasm of other organs or systems; Z83.79 Family history of other diseases of the digestive system; Z82.3 Family history of stroke; Z82.0 Family history of epilepsy and other diseases of the nervous system
CPT/HCPCS: 36415; 74177; 76705; 78226; 80048; 80053; 80076; 81001; 82150; 83605; 83690; 84484; 85025; 88304; 93005; 96361; 96365; 96375; 99285

== ENCOUNTER → 2019-07-24 | Outpatient (CLI) | payer MEDICARE ==
--- NOTE | 2019-07-27 13:24 | MM ---
Reason for exam: screening (asymptomatic). Last mammogram was performed 3 years and 1 month ago. History: Patient is postmenopausal. Family history of breast cancer in aunt at age 90. Physical Findings: A clinical breast exam by your physician is recommended on an annual basis and results should be correlated with mammographic findings. MG Screening Mammo w CAD Bilateral CC and MLO view(s) were taken. Prior study comparison: June 19, 2016, bilateral MG screening mammo w CAD. June 17, 2015, bilateral MG screening mammo w CAD. There are scattered fibroglandular densities. No significant changes when compared with prior studies. ASSESSMENT: Negative, BI-RAD 1 RECOMMENDATION: Routine screening mammogram of both breasts in 1 year.
--- NOTE | 2019-07-27 19:21 | BD ---
EXAMINATION TYPE: Axial Bone Density DATE OF EXAM: 07/24/2019 COMPARISON: NONE CLINICAL HISTORY: 73-year-old female postmenopausal screening Height: 62 Weight: 124.0 FRAX RISK QUESTIONS: Alcohol (3 or more units per day): no Family History (Parent hip fracture): no Glucocorticoids (More than 3mos): no (Ex: prednisone, prednisolone, methylprednisolone, dexamethasone, and hydrocortisone). History of Fracture in Adulthood: yes Secondary Osteoporosis: 1. Type 1 Diabetes: no 2. Hyperthyroidism: no 3. Menopause before 45: no 4. Malnutrition: no 5. Chronic liver disease: no Rheumatoid Arthritis: no Current Tobacco Use: no RISK FACTORS HISTORY OF: History of Wrist Fracture: left wrist When: 2 years Surgery to Spine/Hip(right/left)/Wrist (right/left): no Family History of Osteoporosis: no Active: yes Diet low in dairy products/other sources of calcium: no Postmenopausal woman: around age 43 MEDICATIONS: lipitor, indural, topamax, thyroid for 30 years Additional History: EXAM MEASUREMENTS: Bone mineral densitometry was performed using the [employer] [place] System. Bone mineral density as measured about the Lumbar spine is: ----- L1-L4(G/cm2): 0.870 T Score Values are as follows: ----- L2: -3.3 ----- L3: -2.0 ----- L4: -1.7 ----- L1-L4: -2.6 Bone mineral density has: decreased -0.9 % since study of: 06.17.2015 Bone mineral density about the R hip (g/cm2): 0.657 Bone mineral density about the L hip (g/cm2): 0.639 T Score values are as follows: -----R Neck: -2.7 -----L Neck: -2.9 -----R Total: -2.0 -----L Total: -2.0 Bone mineral density has: decreased -2.9 % since study of: 06.17.2015 IMPRESSION: Osteoporosis (T Score less than -2.5). There is increased fracture risk and therapy is usually indicated based on age. Re-Screen 1-2 years. NOTE: T-SCORE=SD OF THE YOUNG ADULT MEAN.
== END | disposition home or self-care (01) ==
LOC: RADMAMWWP 15:17
PROVIDERS: ATTEND Internal Medicine
DX: Z12.31 Encounter for screening mammogram for malignant neoplasm of breast (principal); M81.0 Age-related osteoporosis without current pathological fracture
CPT/HCPCS: 77067; 77080

== ENCOUNTER → 2019-11-03 | Outpatient (CLI) | payer MEDICARE ==
--- NOTE | 2019-11-03 10:01 | XR ---
EXAMINATION TYPE: XR chest 2V DATE OF EXAM: 11/03/2019 COMPARISON: Chest x-ray January 13, 2009. HISTORY: Presurgical testing. TECHNIQUE: Frontal and lateral views of the chest are obtained. FINDINGS: There is no focal air space opacity, pleural effusion, or pneumothorax seen. The cardiac silhouette size is within normal limits. The osseous structures are intact. IMPRESSION: No acute pulmonary process. No significant change from prior.
[2019-11-03 10:21] LABS: HCT 45.3 % (34.0-46.0); HGB 14.4 gm/dL (11.4-16.0); MCH 32.3 pg (25.0-35.0); MCHC 31.8 g/dL (31.0-37.0); MCV 101.7 fL (80.0-100.0); Mean Platelet Volume 7.8; Platelet Count 222 k/uL (150-450); RBC 4.46 m/uL (3.80-5.40); RDW 12.7 % (11.5-15.5); WBC 5.5 k/uL (3.8-10.6)
[2019-11-03 10:36] LABS: Partial Thromboplastin Time 23.9 sec (22.0-30.0); Prothrombin Time 10.3 sec (9.0-12.0)
[2019-11-03 10:43] LABS: Amorphous Sediment,Urine Moderate /hpf; Appearance,Urine Cloudy (Clear); Bacteria,Urine Rare /hpf; Bilirubin,Urine Negative (Negative); Blood,Urine Negative (Negative); Color,Urine Yellow; Glucose,Urine (UA) Negative (Negative); Ketones,Urine Negative (Negative); Leukocyte Esterase,Urine Moderate (Negative); Mucus,Urine Rare /hpf; Nitrite,Urine Negative (Negative); PH, Urine 7.5 (5.0-8.0); Protein,Urine Negative (Negative); RBC,Urine 1 /hpf (0-5); Specific Gravity,Urine 1.012 (1.001-1.035); Squamous Epithelial Cell,Urine 1 /hpf (0-4); Urobilinogen,Urine <2.0 mg/dL (<2.0); WBC,Urine 4 /hpf (0-5)
[2019-11-03 18:24] LABS: AST 29 U/L (13-35); Albumin/Globulin Ratio 2.32 (1.60-3.17); Alkaline Phosphatase 90 U/L (41-126); Calcium 9.1 mg/dL (8.7-10.3); Carbon Dioxide 28.9 mmol/L (21.6-31.8); Chloride 103 mmol/L (96-109); Globulin 1.9 g/dL (1.6-3.3); Glucose 91 mg/dL (70-110); Non-African American GFR(CKD) 71.6 (60.0-200.0); Potassium 3.6 mmol/L (3.5-5.5); Sodium 139 mmol/L (135-145); Total Bilirubin 0.4 mg/dL (0.2-1.2); Total Protein 6.3 g/dL (6.2-8.2)
[2019-11-03 19:18] LABS: ALT <8 U/L (8-44)
== END | disposition home or self-care (01) ==
LOC: LABWHC1 09:19
PROVIDERS: ATTEND Internal Medicine
DX: R05 Cough (principal); Z01.812 Encounter for preprocedural laboratory examination; G25.0 Essential tremor
CPT/HCPCS: 36415; 71046; 80053; 81001; 85027; 85610; 85730

== ENCOUNTER 2019-11-08 14:08 | Emergency (ER) | payer MEDICARE ==
[2019-11-08 15:15] VITALS: BP 151/76; PULSE 60; RESP 16; TEMP 98.6
[2019-11-08] MEDS ORDERED: SODIUM CHLORIDE 0.9% 500 ML 500 ML IV STA (15:54)
--- NOTE | 2019-11-08 15:58 | ED ---
General Adult HPI - General Source: EMS, RN notes reviewed Mode of arrival: EMS Limitations: no limitations <Michael Ruth - Last Filed: 11/08/19 17:34> <Nash Reed - Last Filed: 11/08/19 18:28> - General Chief complaint: Abdominal Pain Stated complaint: upper abd pain Time Seen by Provider: 11/08/19 15:30 - History of Present Illness Initial comments: 74 year old female with a past medical history of hyperlipidemia, left wrist fracture, benign essential tuberous presents to the emergency department for a chief complaint of upper abdominal pain. Patient states that she went in to sit down on a couch and eat prunes. States that shortly after eating these she started to have some upper abdominal pain. Patient states this occurred just prior to arrival which was about 1.5 hours ago. Patient states it lasted for about 10 minutes and then resolved. Patient states it was sharp in nature. St ates that it is completely resolved at this time. Patient denies any shortness of breath, nausea, diaphoresis associated with this pain. Denies any chest pain.Patient has no other complaints at this time including shortness of breath, abdominal pain, nausea or vomiting, headache, or visual changes. (Michael Ruth) - Related Data Home Medications Medication Instructions Recorded Confirmed Atorvastatin [Lipitor] 20 mg PO HS 07/05/17 10/16/18 Citrucel Tablet 1 tab PO BID 07/05/17 10/16/18 Docusate [Colace] 100 mg PO BID 07/05/17 10/16/18 Fluticasone Nasal [place] [Flonase 2 spr EA NOSTRIL DAILY 07/05/17 10/16/18 Nasal [place]] Folic Acid 0.8 mg PO Q48H 07/05/17 10/16/18 Levothyroxine Sodium [Synthroid] 100 mcg PO SUMOWETHSA 07/05/17 10/16/18 Levothyroxine Sodium [Synthroid] 150 mcg PO TUFR 07/05/17 10/16/18 Loratadine [Claritin] 10 mg PO DAILY 07/05/17 10/16/18 Multivitamins, Thera [Multivitamin 1 tab PO DAILY 07/05/17 10/16/18 (formulary)] Primidone [Mysoline] 100 mg PO TID 07/05/17 10/16/18 Propranolol HCl [Inderal LA] 120 mg PO DAILY 07/05/17 10/16/18 Propranolol [Inderal] 20 mg PO TID 07/05/17 10/16/18 Topiramate [Topamax] 50 mg PO TID 07/05/17 10/16/18 Cholecalciferol [Vitamin D3 (25 1,000 unit PO DAILY 10/16/18 10/16/18 Mcg = 1000 Iu)] Propranolol [Inderal] 20 mg PO DAILY@1600 10/16/18 10/16/18 Topiramate [Topamax] 50 mg PO DAILY@1600 10/16/18 10/16/18 Allergies Allergy/AdvReac Type Severity Reaction Status Date / Time adhesive Allergy reddness Verified 11/08/19 15:16 Review of Systems ROS Other: All systems not noted in ROS Statement are negative. <Michael Ruth P - Last Filed: 11/08/19 17:34> ROS Other: All systems not noted in ROS Statement are negative. <Nash Reed - Last Filed: 11/08/19 18:28> ROS Statement: Those systems with pertinent positive or pertinent negative responses have been documented in the HPI. Past Medical History Past Medical History: Hyperlipidemia, Thyroid Disorder Additional Past Medical History / Comment(s): left wrist fx, in cast, benign essential tremors History of Any Multi-Drug Resistant Organisms: None Reported Past Surgical History: Appendectomy, Orthopedic Surgery Additional Past Surgical History / Comment(s): eye surgery for hole in macula, sagrario cataracts, rt foot sx Past Anesthesia/Blood Transfusion Reactions: Previous Problems w/ Anesthesia Additional Past Anesthesia/Blood Transfusion Reaction / Comment(s): trouble waking up Past Psychological History: No Psychological Hx Reported Smoking Status: Never smoker - Past Family History Father Family Medical History: CVA/TIA Additional Family Medical History / Comment(s): from kidney failure in 1983 Mother Family Medical History: Myocardial Infarction ([place]) Additional Family Medical History / Comment(s): in 1996 Sister(s) Additional Family Medical History / Comment(s): trigeminal neuralgia Brother(s) Family Medical History: Pulmonary Embolus <Michael Ruth P - Last Filed: 11/08/19 17:34> General Exam Limitations: no limitations General appearance: alert, in no apparent distress Head exam: Present: atraumatic, normocephalic, normal inspection Eye exam: Present: normal appearance, PERRL, EOMI. Absent: scleral icterus, conjunctival injection, periorbital swelling ENT exam: Present: normal exam, mucous membranes moist Neck exam: Present: normal inspection, full ROM. Absent: tenderness, meningismus, lymphadenopathy Respiratory exam: Present: normal lung sounds bilaterally. Absent: respiratory distress, wheezes, rales, rhonchi, stridor Cardiovascular Exam: Present: regular rate, normal rhythm, normal heart sounds. Absent: systolic murmur, diastolic murmur, rubs, gallop, clicks GI/Abdominal exam: Present: soft, normal bowel sounds. Absent: distended, tenderness, guarding, rebound, rigid Neurological exam: Present: alert <Michael Ruth P - Last Filed: 11/08/19 17:34> Course Vital Signs 11/08/19 15:12 Temperature 98.6 F Pulse Rate 60 Respiratory 16 Rate Blood Pressure 151/76 O2 Sat by Pulse 100 Oximetry EKG Findings - EKG Comments: EKG Findings:: Sinus bradycardia, ventricular rate 58, IN interval 176, QTC 433 <Michael Ruth P - Last Filed: 11/08/19 17:34> Medical Decision Making - Lab Data Result diagrams: 11/08/19 16:00 11/08/19 16:00 <Michael Ruth P - Last Filed: 11/08/19 17:34> - Lab Data Result diagrams: 11/08/19 16:00 11/08/19 16:00 <Nash Reed - Last Filed: 11/08/19 18:28> - Medical Decision Making Farnaz is a 74-year-old pleasant female who had upper abdominal pain lasting for about 10 minutes that resolved spontaneously prior to arrival. Vitals are stable here in the emergency department. Abdominal exam is benign. There is no tenderness. Patient denies any chest pain shortness of breath nausea or diaphoresis associated with this upper abdominal pain. CBC CMP unremarkable. Patient has a history of cholecystectomy. Urinalysis unremarkable. X-ray shows a nonacute abdomen. Patient was evaluated and monitored for over 3 hours in the emergency department and did not have any recurrence of pain. She was invit ed by Dr. Reed as well. At this time patient is stable for discharge. She'll follow up with primary care in 1-2 days. She will return if she has any worsening symptoms or recurrence of symptoms. (Michael Ruth) 68 sexual female presenting with upper abdominal pain which resolved prior to arrival. Patient has soft abdomen, no abdominal tenderness, no rebound or gu arding. She has EKG which is nonischemic. X-rays negative for obstruction. She remains asymptomatic while in the emergency department. She has a normal pulse exam. She will return with any worsening or changing symptoms. (Nash Reed) - Lab Data Lab Results 11/08/19 11/08/19 11/08/19 Range/Units 16:00 16:00 16:35 WBC 4.9 (3.8-10.6) k/uL RBC 4.09 (3.80-5.40) m/uL Hgb 13.6 (11.4-16.0) gm/dL Hct 40.3 (34.0-46.0) % MCV 98.3 (80.0-100.0) fL MCH 33.2 (25.0-35.0) pg MCHC 33.8 (31.0-37.0) g/dL RDW 12.6 (11.5-15.5) % Plt Count 225 (150-450) k/uL Neutrophils % 62 % Lymphocytes % 24 % Monocytes % 9 % Eosinophils % 3 % Basophils % 0 % Neutrophils # 3.0 (1.3-7.7) k/uL Lymphocytes # 1.2 (1.0-4.8) k/uL Monocytes # 0.4 (0-1.0) k/uL Eosinophils # 0.2 (0-0.7) k/uL Basophils # 0.0 (0-0.2) k/uL Sodium 136 L (137-145) mmol/L Potassium 4.2 (3.5-5.1) mmol/L Chloride 103 (98-107) mmol/L Carbon Dioxide 26 (22-30) mmol/L Anion Gap 7 mmol/L BUN 18 H (7-17) mg/dL Creatinine 0.84 (0.52-1.04) mg/dL Est GFR (CKD-EPI)AfAm 78 (>60 ml/min/1.73 sqM) Est GFR (CKD-EPI)NonAf 68 (>60 ml/min/1.73 sqM) Glucose 86 (74-99) mg/dL Calcium 8.9 (8.4-10.2) mg/dL Total Bilirubin 0.3 (0.2-1.3) mg/dL AST 87 H (14-36) U/L ALT 9 (4-34) U/L Alkaline Phosphatase 82 (38-126) U/L Total Protein 6.2 L (6.3-8.2) g/dL Albumin 3.7 (3.5-5.0) g/dL Amylase 56 (30-110) U/L Lipase 106 (23-300) U/L Urine Color Light Yellow Urine Appearance Clear (Clear) Urine pH 7.0 (5.0-8.0) Ur Specific [place] 1.004 (1.001-1.035) Urine Protein Negative (Negative) Urine Glucose (UA) Negative (Negative) Urine Ketones Negative (Negative) Urine Blood Negative (Negative) Urine Nitrite Negative (Negative) Urine Bilirubin Negative (Negative) Urine Urobilinogen <2.0 (<2.0) mg/dL Ur Leukocyte Esterase Negative (Negative) Disposition Is patient prescribed a controlled substance at d/c from ED?: No Time of Disposition: 17:36 <Michael Ruth P - Last Filed: 11/08/19 17:34> <Nash Reed N - Last Filed: 11/08/19 18:28> Clinical Impression: Abdominal pain Disposition: HOME SELF-CARE Condition: Good Instructions (If sedation given, give patient instructions): Abdominal Pain (ED) Additional Instructions: Please follow up with primary care in 1-2 days. Please return to the emergency department if you have any worsening symptoms. Referrals: Jose De Jesus Medina MD [Primary Care Provider] - 1-2 days
--- NOTE | 2019-11-08 16:37 | XR ---
EXAMINATION TYPE: XR KUB DATE OF EXAM: 11/08/2019 COMPARISON: NONE HISTORY: Upper abdominal pain TECHNIQUE: 2 views upright FINDINGS: There is no sign of intestinal obstruction or pneumoperitoneum. Fecal pattern is normal. Th ere is no evidence of a mass. There are clips apparently from cholecystectomy. Lung bases are clear. IMPRESSION: Nonacute abdomen.
[2019-11-08 16:45] LABS: Appearance,Urine Clear (Clear); Bilirubin,Urine Negative (Negative); Blood,Urine Negative (Negative); Color,Urine Light Yellow; Glucose,Urine (UA) Negative (Negative); Ketones,Urine Negative (Negative); Leukocyte Esterase,Urine Negative (Negative); Nitrite,Urine Negative (Negative); Protein,Urine Negative (Negative); Specific Gravity,Urine 1.004 (1.001-1.035); Urobilinogen,Urine <2.0 mg/dL (<2.0)
[2019-11-08 16:53] LABS: Albumin 3.7 g/dL (3.5-5.0); Calcium 8.9 mg/dL (8.4-10.2); Potassium 4.2 mmol/L (3.5-5.1); Total Bilirubin 0.3 mg/dL (0.2-1.3); Total Protein 6.2 g/dL (6.3-8.2)
[2019-11-08 16:59] LABS: Basophils % (A) 0 %; Eosinophils # (A) 0.2 k/uL (0-0.7); Eosinophils % (A) 3 %; HCT 40.3 % (34.0-46.0); HGB 13.6 gm/dL (11.4-16.0); Lymphocytes # (A) 1.2 k/uL (1.0-4.8); Lymphocytes % (A) 24 %; MCH 33.2 pg (25.0-35.0); MCHC 33.8 g/dL (31.0-37.0); MCV 98.3 fL (80.0-100.0); Mean Platelet Volume 8.1; Monocytes # (A) 0.4 k/uL (0-1.0); Monocytes % (A) 9 %; Neutrophils % (A) 62 %; Platelet Count 225 k/uL (150-450); RBC 4.09 m/uL (3.80-5.40); RDW 12.6 % (11.5-15.5); WBC 4.9 k/uL (3.8-10.6)
== END 2019-11-08 18:05 | disposition home or self-care (01) ==
LOC: EC 14:08
DX: R10.10 Upper abdominal pain, unspecified (principal); E78.5 Hyperlipidemia, unspecified; E07.9 Disorder of thyroid, unspecified; Z79.51 Long term (current) use of inhaled steroids; Z79.890 Hormone replacement therapy; Z79.899 Other long term (current) drug therapy; Z91.048 Other nonmedicinal substance allergy status; Z90.49 Acquired absence of other specified parts of digestive tract; Z90.89 Acquired absence of other organs
CPT/HCPCS: 36415; 74018; 80053; 81003; 82150; 83690; 85025; 93005; 99284

== ENCOUNTER → 2019-11-27 | Outpatient (CLI) | payer MEDICARE ==
--- NOTE | 2019-11-27 16:21 | US ---
EXAMINATION TYPE: US venous doppler duplex LE RT DATE OF EXAM: 11/27/2019 3:54 PM COMPARISON: NONE CLINICAL HISTORY: M79.661 PAIN RT CALF. Pain right leg SIDE PERFORMED: right TECHNIQUE: The lower extremity deep venous system is examined utilizing real time linear array sonog hiral with graded compression, doppler sonography and color-flow sonography. VESSELS IMAGED: External Iliac Vein (EIV) Common Femoral Vein Deep Femoral Vein Greater Saphenous Vein * Femoral Vein Popliteal Vein Small Saphenous Vein * Proximal Calf Veins (* superficial vessels) Right Leg: No evidence of DVT IMPRESSION: 1. Right lower extremity ultrasound negative for deep venous thrombosis.
== END | disposition home or self-care (01) ==
LOC: RADUSWWP 15:26
PROVIDERS: ATTEND Internal Medicine
DX: M79.661 Pain in right lower leg (principal)

== ENCOUNTER 2019-12-02 13:38 | Emergency (ER) | payer MEDICARE ==
--- NOTE | 2019-12-02 14:32 | ED ---
General Adult HPI - General Chief complaint: Abdominal Pain Stated complaint: poss bowel obstruction Time Seen by Provider: 12/02/19 14:09 Source: patient, family, RN notes reviewed, old records reviewed Mode of arrival: wheelchair Limitations: no limitations - History of Present Illness Initial comments: 74-year-old female patient past medical history significant for recent brain surgery due to benign essential tremor. Presents to ED for chief complaint of constipation. Patient reports that she has not had a normal bowel movement since 11/23. Patient reports that she has issues Past. Patient was that she has been touch with her primary care provider for this and has tried multiple [id number] remedies. She reports the did attempt a manual disimpaction earlier today which did display some stool. Denies any other complaints at this time. Systemic: Pt denies fatigue, fever/chills, rash. Pt denies weakness, night sweats, weight loss. Neuro: Pt denies headache, visual disturbances, syncope or pre-syncope. HEENT: Pt denies ocular discharge or irritation, otalgia, rhinorrhea, pharyngitis or notable lymphadenopathy. Cardiopulmonary: Pt denies chest pain, SOB, heart palpitations, dyspnea on exertion. Abdominal/GI: Pt denies abdominal pain, n/v/d. : Pt denies dysuria, burning w/ urination, frequency/urgency. Denies new onset urinary or bowel incontinence. MSK: Pt denies myalgia, loss of strength or function in extremities. Neuro: Pt denies new onset weakness, paresthesias. - Related Data Home Medications Medication Instructions Recorded Confirmed Atorvastatin [Lipitor] 20 mg PO HS 07/05/17 10/16/18 Citrucel Tablet 1 tab PO BID 07/05/17 10/16/18 Docusate [Colace] 100 mg PO BID 07/05/17 10/16/18 Fluticasone Nasal [place] [Flonase 2 spr EA NOSTRIL DAILY 07/05/17 10/16/18 Nasal [place]] Folic Acid 0.8 mg PO Q48H 07/05/17 10/16/18 Levothyroxine Sodium [Synthroid] 100 mcg PO SUMOWETHSA 07/05/17 10/16/18 Levothyroxine Sodium [Synthroid] 150 mcg PO TUFR 07/05/17 10/16/18 Loratadine [Claritin] 10 mg PO DAILY 07/05/17 10/16/18 Multivitamins, Thera [Multivitamin 1 tab PO DAILY 07/05/17 10/16/18 (formulary)] Primidone [Mysoline] 100 mg PO TID 07/05/17 10/16/18 Propranolol HCl [Inderal LA] 120 mg PO DAILY 07/05/17 10/16/18 Propranolol [Inderal] 20 mg PO TID 07/05/17 10/16/18 Topiramate [Topamax] 50 mg PO TID 07/05/17 10/16/18 Cholecalciferol [Vitamin D3 (25 1,000 unit PO DAILY 10/16/18 10/16/18 Mcg = 1000 Iu)] Propranolol [Inderal] 20 mg PO DAILY@1600 10/16/18 10/16/18 Topiramate [Topamax] 50 mg PO DAILY@1600 10/16/18 10/16/18 Allergies Allergy/AdvReac Type Severity Reaction Status Date / Time adhesive Allergy reddness Verified 12/02/19 13:56 Review of Systems ROS Statement: Those systems with pertinent positive or pertinent negative responses have been documented in the HPI. ROS Other: All systems not noted in ROS Statement are negative. Past Medical History Past Medical History: Hyperlipidemia, Thyroid Disorder Additional Past Medical History / Comment(s): left wrist fx, in cast, benign essential tremors History of Any Multi-Drug Resistant Organisms: None Reported Past Surgical History: Appendectomy, Orthopedic Surgery Additional Past Surgical History / Comment(s): eye surgery for hole in macula, sagrario cataracts, rt foot sx Past Anesthesia/Blood Transfusion Reactions: Previous Problems w/ Anesthesia Additional Past Anesthesia/Blood Transfusion Reaction / Comment(s): trouble waking up Past Psychological History: No Psychological Hx Reported Smoking Status: Never smoker Past Alcohol Use History: None Reported Past Drug Use History: None Reported - Past Family History Father Family Medical History: CVA/TIA Additional Family Medical History / Comment(s): from kidney failure in 1983 Mother Family Medical History: Myocardial Infarction ([place]) Additional Family Medical History / Comment(s): in 1996 Sister(s) Additional Family Medical History / Comment(s): trigeminal neuralgia Brother(s) Family Medical History: Pulmonary Embolus General Exam - General Exam Comments Initial Comments: Constitutional: NAD, AOX3, Pt has pleasant affect. HEENT: NC/AT, trachea midline, neck supple, no lymphadenopathy. Posterior pharynx non erythematous, without exudates. External ears appear normal, without discharge. Mucous membranes moist. Eyes PERRLA, EOM intact. There is no scleral icterus. No pallor noted. Cardiopulmonary: RRR, no murmurs, rubs or gallops, no JVD noted. Lungs CTAB in anterior and posterior vieyra. No peripheral edema. Abdominal exam: Abdomen soft and non-distended. Abdomen non-tender to palpation in all 4 quadrants. Bowel sounds active in LLQ. No hepatosplenomegaly. No ecchymosis Neuro: CN II-XII intact. No nuchal rigidity. No raccon eyes, no eng sign, no hemotympanum. No cervical spinal tenderness. MSK: Incision site clean, dry, no erythema or drainage. No posterior calf tenderness bilaterally, homans sign negative bilaterally. Posterior tibialis and radial pulse +2 bilaterally. Sensation intact in upper and lower extremities. Full active ROM in upper and lower extremities, 5/5 stregnth. Limitations: no limitations Course Vital Signs 12/02/19 13:56 Temperature 99.3 F Pulse Rate 71 Respiratory 18 Rate Blood Pressure 103/58 O2 Sat by Pulse 99 Oximetry Medical Decision Making - Medical Decision Making 74-year-old female patient past medical history significant for recent brain surgery due to benign essential tremor. Presents to ED for chief complaint of constipation. Patient reports that she has not had a normal bowel movement since 11/23. Patient reports that she has issues Past. Patient was that she has been touch with her primary care provider for this and has tried multiple avgb-qir-bncvzzm remedies. She reports the did attempt a manual disimpaction earlier today which did display some stool. Denies any other complaints at this time. Patient vital signs are stable, afebrile. Physical exam displayed nontender abdomen, intact neurologic exam, incision site clean and dry without any signs of infection. KUB displayed constipation. Patient was administered enema and did pass a stool ball. Patient discharged to follow up with primary care provider and return to ER if condition worsens. Case discu ssed with Dr. Cameron. Disposition Clinical Impression: Constipation Disposition: HOME SELF-CARE Condition: Stable Instructions (If sedation given, give patient instructions): Constipation (ED) Additional Instructions: Follow-up with primary care provider tomorrow. Continue to follow instructions from primary care provider for constipation. Return to ER if condition worsens. Is patient prescribed a controlled substance at d/c from ED?: No Referrals: Jose De Jesus Medina MD [Primary Care Provider] - 1-2 days
--- NOTE | 2019-12-02 14:40 | XR ---
EXAMINATION TYPE: XR KUB DATE OF EXAM: 12/02/2019 COMPARISON: 11/08/2019 HISTORY: Constipation TECHNIQUE: One view abdominal series FINDINGS: The osseous structures are intact. The bowel gas pattern is nonspecific. Retained fecal debris throu ghout the colon. Calcifications in pelvis likely vascular. IMPRESSION: 1. Correlate for constipation findings similar to the prior exam.
[2019-12-02 16:25] VITALS: BP 118/87; PULSE 87; RESP 16; TEMP 98
== END 2019-12-02 16:24 | disposition home or self-care (01) ==
LOC: EC 13:38
DX: K59.00 Constipation, unspecified (principal); E78.5 Hyperlipidemia, unspecified; E07.9 Disorder of thyroid, unspecified; Z79.890 Hormone replacement therapy; Z79.51 Long term (current) use of inhaled steroids; Z79.899 Other long term (current) drug therapy; Z91.048 Other nonmedicinal substance allergy status
CPT/HCPCS: 74018; 99284

== ENCOUNTER 2020-04-20 09:40 | Emergency (ER) | payer MEDICARE ==
[2020-04-20 09:49] VITALS: RESP 18; TEMP 98.3
--- NOTE | 2020-04-20 10:23 | ED ---
General Adult HPI - General Chief complaint: Fall Stated complaint: Chest Pain- Fall Time Seen by Provider: 04/20/20 09:50 Source: patient, family, RN notes reviewed Mode of arrival: ambulatory Limitations: physical limitation - History of Present Illness Initial comments: Patient is a pleasant 74-year-old female presenting to the emergency department following a fall. Incident occurred on Saturday, 4 days ago. Patient was walking her dog when she was pulled down. Patient did strike the right side of her head however no loss of consciousness. No persistent vomiting. Patient was slightly confused last night, limited history regarding this. No confusion at this time. No weakness. Patient does have some discomfort of her right upper arm as well as her right lateral ribs near the axillary region. Patient does have a deep brain stimulator for essential tremors. Patient states she does have a monitoring device for this and it appears to be working normally. - Related Data Home Medications Medication Instructions Recorded Confirmed Atorvastatin [Lipitor] 20 mg PO HS 07/05/17 10/16/18 Citrucel Tablet 1 tab PO BID 07/05/17 10/16/18 Docusate [Colace] 100 mg PO BID 07/05/17 10/16/18 Fluticasone Nasal [place] [Flonase 2 spr EA NOSTRIL DAILY 07/05/17 10/16/18 Nasal [place]] Folic Acid 0.8 mg PO Q48H 07/05/17 10/16/18 Levothyroxine Sodium [Synthroid] 100 mcg PO SUMOWETHSA 07/05/17 10/16/18 Levothyroxine Sodium [Synthroid] 150 mcg PO TUFR 07/05/17 10/16/18 Loratadine [Claritin] 10 mg PO DAILY 07/05/17 10/16/18 Multivitamins, Thera [Multivitamin 1 tab PO DAILY 07/05/17 10/16/18 (formulary)] Primidone [Mysoline] 100 mg PO TID 07/05/17 10/16/18 Propranolol HCl [Inderal LA] 120 mg PO DAILY 07/05/17 10/16/18 Propranolol [Inderal] 20 mg PO TID 07/05/17 10/16/18 Topiramate [Topamax] 50 mg PO TID 07/05/17 10/16/18 Cholecalciferol [Vitamin D3 (25 1,000 unit PO DAILY 10/16/18 10/16/18 Mcg = 1000 Iu)] Propranolol [Inderal] 20 mg PO DAILY@1600 10/16/18 10/16/18 Topiramate [Topamax] 50 mg PO DAILY@1600 10/16/18 10/16/18 Allergies Allergy/AdvReac Type Severity Reaction Status Date / Time adhesive Allergy reddness Verified 04/20/20 09:48 Review of Systems ROS Statement: Those systems with pertinent positive or pertinent negative responses have been documented in the HPI. ROS Other: All systems not noted in ROS Statement are negative. Constitutional: Denies: fever Eyes: Denies: eye pain ENT: Denies: ear pain Respiratory: Denies: cough Cardiovascular: Denies: chest pain Endocrine: Denies: fatigue Gastrointestinal: Denies: abdominal pain Genitourinary: Denies: dysuria Musculoskeletal: Denies: back pain Skin: Denies: rash Neurological: Reports: as per HPI, headache Past Medical History Past Medical History: Hyperlipidemia, Thyroid Disorder Additional Past Medical History / Comment(s): , benign essential tremors History of Any Multi-Drug Resistant Organisms: None Reported Past Surgical History: Appendectomy, Cholecystectomy, Orthopedic Surgery Additional Past Surgical History / Comment(s): eye surgery for hole in macula, sagrario cataracts, rt foot sx Past Anesthesia/Blood Transfusion Reactions: Previous Problems w/ Anesthesia Additional Past Anesthesia/Blood Transfusion Reaction / Comment(s): trouble waking up Past Psychological History: No Psychological Hx Reported Smoking Status: Never smoker Past Alcohol Use History: None Reported Past Drug Use History: None Reported - Past Family History Father Family Medical History: CVA/TIA Additional Family Medical History / Comment(s): from kidney failure in 1983 Mother Family Medical History: Myocardial Infarction ([place]) Additional Family Medical History / Comment(s): in 1996 Sister(s) Additional Family Medical History / Comment(s): trigeminal neuralgia Brother(s) Family Medical History: Pulmonary Embolus General Exam Limitations: physical limitation General appearance: alert, in no apparent distress Head exam: Present: other (Ecchymosis with mild tenderness right eyebrow) Eye exam: Present: normal appearance, PERRL, EOMI. Absent: nystagmus ENT exam: Present: normal oropharynx Neck exam: Present: normal inspection. Absent: tenderness Respiratory exam: Present: normal lung sounds bilaterally, chest wall tenderness (Mild tenderness below the right axilla), other (Similar device right anterior chest without swelling or tenderness or skin discoloration) Cardiovascular Exam: Present: regular rate, normal rhythm GI/Abdominal exam: Present: soft. Absent: tenderness Extremities exam: Present: tenderness (Mild ecchymosis and tenderness right proximal humerus.), other (Mild ecchymosis without tenderness right anterior knee) Neurological exam: Present: alert, oriented X3, CN II-XII intact. Absent: motor sensory deficit Expanded Neurological exam: Present: protecting the airway Patient oriented to: Present: person, place, time Speech: Present: fluid speech Cranial nerves: EOM's Intact: Normal Motor strength exam: RUE: 5, LUE: 5, RLE: 5, LLE: 5 Eye Response: (4) open spontaneously Motor Response: (6) obeys commands Verbal Response: (5) oriented Psychiatric exam: Present: normal affect, normal mood Skin exam: Present: other (Ecchymosis) Course Vital Signs 04/20/20 04/20/20 04/20/20 09:46 09:48 10:48 Temperature 98.3 F Pulse Rate 64 61 Respiratory 18 18 18 Rate Blood Pressure 180/100 143/74 O2 Sat by Pulse 99 100 Oximetry EKG Findings - EKG Comments: EKG Findings:: Normal sinus rhythm 63. RI 168. QRS 80. QT 418. QTC 427. Normal axis. Normal QRS. No acute ST change. Medical Decision Making - Medical Decision Making Patient reevaluated and resting comfortably in bed. Patient and family updated on results. They're both comfortable with discharge home. Advised close follow-up and return if symptoms worsen. - Radiology Data Radiology results: report reviewed (Computed tomography scan of the brain shows postsurgical changes. No acute intercranial process.), image reviewed (X-ray right humerus reveals no acute abnormality. X-ray of the right ribs and PA chest showed no displaced rib fracture.) Disposition Clinical Impression: Fall, Contusion of chest, Head injury Disposition: HOME SELF-CARE Condition: Stable Instructions (If sedation given, give patient instructions): Fall Prevention (ED), Head Injury (ED) Additional Instructions: Please follow-up with primary care physician in the next 24-48 hours for recheck. Return for confusion, weakness, difficulty breathing, worsening or changing symptoms or other concerns. Is patient prescribed a controlled substance at d/c from ED?: No Referrals: Jose De Jesus Medina MD [Primary Care Provider] - 1-2 days Time of Disposition: 11:00
--- NOTE | 2020-04-20 10:42 | XR ---
EXAMINATION TYPE: XR humerus RT DATE OF EXAM: 04/20/2020 COMPARISON: NONE HISTORY: Pain TECHNIQUE: 2 views submitted. FINDINGS: The osseous structures are intact and the joint spaces are preserved. Diffuse osteopenia noted. IMPRESSION: 1. No acute fracture or dislocation.
--- NOTE | 2020-04-20 10:43 | CT ---
EXAMINATION TYPE: CT brain wo con DATE OF EXAM: 04/20/2020 COMPARISON: 07/05/2017 INDICATION: Fall on Saturday, bruising tenderness to Rt eye DLP: 1099.4 mGycm, Automated exposure control for dose reduction was used. CONTRAST: None CT of the brain is performed utilizing 3 mm thick sections through the posterior fossa and 3 mm thick sections through the remaining calvarium. Study is performed within 24 hours of arrival to the hosp ital. There is been interval placement of an electronic leads through the frontal regions into the region o f the basal ganglion thalamus. No abnormal hyperdensity is present to suggest an acute intracranial hemorrhage. No mass lesion is evident. No acute infarcts are evident. No hydrocephalus is evident. No suspicious temporal horn dilatation is evident. Third ventricle is no rmal in midline. Fourth ventricle is normal and midline. Sulci are appropriate for the patient age. Paranasal sinuses and mastoid air cells within the [id number] are clear. No acute fractures are ev ident. IMPRESSIONS: 1. Postsurgical changes. No acute intracranial process is evident.
--- NOTE | 2020-04-20 10:45 | XR ---
EXAMINATION TYPE: XR ribs RT w pa chest xray DATE OF EXAM: 04/20/2020 COMPARISON: NONE TECHNIQUE: PA and lateral views submitted. HISTORY: pain. FINDINGS: The lungs are clear and there is no pneumothorax, pleural effusion, or focal pneumonia. Diffuse ost eopenia with biapical pleural thickening. No pneumothorax. There is a stimulator device. No acute dis placed rib fracture. IMPRESSION: 1. No acute displaced rib fracture..
[2020-04-20 11:24] VITALS: BP 141/70; PULSE 60
== END 2020-04-20 11:24 | disposition home or self-care (01) ==
LOC: EC 09:40
DX: S20.219A Contusion of unspecified front wall of thorax, initial encounter (principal); S80.01XA Contusion of right knee, initial encounter; S40.011A Contusion of right shoulder, initial encounter; S00.11XA Contusion of right eyelid and periocular area, initial encounter; S09.90XA Unspecified injury of head, initial encounter; G25.0 Essential tremor; E78.5 Hyperlipidemia, unspecified; E07.9 Disorder of thyroid, unspecified; Z79.899 Other long term (current) drug therapy; Z91.048 Other nonmedicinal substance allergy status; Z79.890 Hormone replacement therapy; W18.39XA Other fall on same level, initial encounter; Y93.K1 Activity, walking an animal
CPT/HCPCS: 70450; 93005; 99284

== ENCOUNTER → 2020-09-30 | Outpatient (CLI) | payer MEDICARE ==
--- NOTE | 2020-10-03 13:25 | MM ---
Reason for exam: screening (asymptomatic). Last mammogram was performed 1 year and 2 months ago. History: Patient is postmenopausal. Family history of breast cancer in aunt at age 90. Physical Findings: A clinical breast exam by your physician is recommended on an annual basis and results should be correlated with mammographic findings. MG 3D Screening Mammo W/Cad Bilateral CC and MLO view(s) were taken. Prior study comparison: July 24, 2019, bilateral MG screening mammo w CAD. June 19, 2016, bilateral MG screening mammo w CAD. There are scattered fibroglandular densities. No significant changes when compared with prior studies. ASSESSMENT: Benign, BI-RAD 2 RECOMMENDATION: Routine screening mammogram of both breasts in 1 year.
== END | disposition home or self-care (01) ==
LOC: RADMAMWWP 14:26
PROVIDERS: ATTEND Internal Medicine
DX: Z12.31 Encounter for screening mammogram for malignant neoplasm of breast (principal)
CPT/HCPCS: 77063; 77067

== ENCOUNTER → 2021-07-31 | Outpatient (CLI) | payer MEDICARE ==
--- NOTE | 2021-08-01 15:31 | BD ---
EXAMINATION TYPE: Axial Bone Density DATE OF EXAM: 07/31/2021 COMPARISON: 07/24/2019 CLINICAL HISTORY: Height: 60.7 IN Weight: 125 LBS FRAX RISK QUESTIONS: History of Fracture in Adulthood: NOSE AND LT WRIST AGE 71 RISK FACTORS HISTORY OF: History of Wrist Fracture: LT WRIST AGE 71 Family History of Osteoporosis: MOTHER Active: LIMITED Postmenopausal woman: AGE 48 Take estrogen and/or progesterone medications: NOT NOW How long: CONTROL FOR 4 YEARS Frequent falls: YES BALANCE ISSUES MEDICATIONS: Thyroid Medications: Which medication: Levothyroxine How Lon+ YEARS Osteoporosis Medications: NOT NOW Which medication: Fosamax How Lon YEARS Additional Medications: CALCIUM, VIT D, LEVOTHYROXINE, CHOLESTEROL MEDS, TREMOR MEDS EXAM MEASUREMENTS: Bone mineral densitometry was performed using the [employer] System. Bone mineral density as measured about the Lumbar spine is: ----- L1-L4(G/cm2): 0.870 T Score Values are as follows: ----- L2: -3.3 ----- L3: -2.0 ----- L4: -1.9 ----- L1-L4: -2.9 Bone mineral density has: Decreased -1.0% since study of: 07/24/2019 Bone mineral density about the R hip (g/cm2): 0.674 Bone mineral density about the L hip (g/cm2): 0.650 T Score values are as follows: -----R Neck: -2.6 -----L Neck: -2.8 -----R Total: -1.9 -----L Total: -2.0 Bone mineral density has: Increased 0.4% since study of: 07/24/2019 IMPRESSION: Osteoporosis (T Score less than -2.5). There is increased fracture risk and therapy is usually indicated based on age. Re-Screen 1-2 years. NOTE: T-SCORE=SD OF THE YOUNG ADULT MEAN.
== END | disposition home or self-care (01) ==
LOC: RADBDWWP 15:27
PROVIDERS: ATTEND Internal Medicine
DX: M81.0 Age-related osteoporosis without current pathological fracture (principal)
CPT/HCPCS: 77080

== ENCOUNTER → 2022-01-17 | Outpatient (CLI) | payer MEDICARE ==
--- NOTE | 2022-01-17 11:55 | FL ---
Modified barium swallow. HISTORY: Dysphagia. Modified barium swallow was performed with the department of speech pathology. The patient was prese nted with various consistencies of barium. There is no evidence for aspiration. One episode of deep penetration with thin liquid barium. Full re port is to follow from the department of speech pathology. Impression: No evidence for aspiration.
== END | disposition home or self-care (01) ==
LOC: RADUSWWP 10:55
PROVIDERS: ATTEND Psychiatry & Neurology Neurology
DX: R13.10 Dysphagia, unspecified (principal)
CPT/HCPCS: 74230

== ENCOUNTER → 2022-01-24 | Outpatient (CLI) | payer MEDICARE ==
[~2022-01-24] MED LIST changes: -DEXAMETHASONE SOD PHOSPHATE 10 MG/ML 1 ML VIAL IV ONE; +DOBUTamine DRIP for NUC MED 500 MG in DEXTROSE/WATER 1 250ML.BAG IV PRN; -HYDROmorphone 1 MG/ML 1 ML SYRINGE IVP PRN; -LACTATED RINGERS 1,000 ML IV SCH; -MIDAZOLAM 2 MG/2 ML VIAL IV PRN; -ONDANSETRON 4 MG/2 ML VIAL IVP ONE; -Pre Op ABX Message 1 EACH MISC MISCELLANE ONE
--- NOTE | 2022-01-24 11:03 | P.STRESS ---
- Stress Test Note Stress Test Results/Findings: Exam Performed: dobutamine stress echo Exam Date: 01/24/22 Reason for Exam: sob Height: 5 ft 1 in Weight: 125 kg Protocol: dse Stage: iii Duration of Exercise: 9.40 Resting Heart Rate: 72 Resting Blood Pressure: 98/80 Maximum Achieved Heart Rate: 120 Maximum Achieved Blood Pressure: 148/79 85% PMHR: 121 100% PMHR: 142 METS: Technologist Comment: Stress Test Results/Findings: Baseline heart rate 72 beats a minute, Baseline blood pressure 98/80 mmHg Baseline twelve-lead EKG showed sinus rhythm with normal ST segments Patient received dobutamine infusion per protocol She complained of shortness of breath at peak infusion Mild drop in blood pressure to 84 mmHg at peak infusion to vitamin, known effect of dobutamine No ECG onset ischemia No arrhythmias Baseline 2-D echo images showed normal LV systolic function without segmental wall motion abnormalities With dobutamine there was a stepwise increment in overall LV contractility without development of any wall motion abnormalities @Recovery region global LV systolic function remained normal Impression No ECG or echocardiographic ms ischemia during dobutamine stress echo
== END | disposition home or self-care (01) ==
LOC: RADNMMAIN 08:59
PROVIDERS: ATTEND Internal Medicine
DX: R06.02 Shortness of breath (principal)
CPT/HCPCS: 93351

== ENCOUNTER → 2022-07-11 | Outpatient (CLI) | payer MEDICARE ==
[2022-07-11 19:22] LABS: Basophils # (A) 0.04 X 10*3/uL (0.00-0.10); Basophils % (A) 0.9 %; Eosinophils # (A) 0.12 X 10*3/uL (0.04-0.35); Eosinophils % (A) 2.7 %; HCT 41.1 % (37.2-46.3); HGB 13.4 g/dL (12.0-15.0); Immature Grans, Automated 0 %; Lymphocytes # (A) 1.27 X 10*3/uL (0.90-5.00); Lymphocytes % (A) 28.9 %; MCH 32.5 pg (27.0-32.0); MCHC 32.6 g/dL (32.0-37.0); MCV 99.8 fL (80.0-97.0); Mean Platelet Volume 10.4 fL (9.5-12.2); Monocytes # (A) 0.56 X 10*3/uL (0.20-1.00); Monocytes % (A) 12.7 %; NRBC Per 100 WBC 0 /100 WBCS (0.0-0.0); Neutrophils # (A) 2.41 X 10*3/uL (1.80-7.70); Neutrophils % (A) 54.8 %; Platelet Count 233 X 10*3/uL (140-440); RBC 4.12 X 10*6/uL (4.10-5.20); RDW 12.6 % (11.5-14.5)
== END | disposition home or self-care (01) ==
LOC: LABWHC1 11:26
PROVIDERS: ATTEND Internal Medicine
DX: D72.819 Decreased white blood cell count, unspecified (principal); R82.90 Unspecified abnormal findings in urine
CPT/HCPCS: 36415; 85025; 87086

== ENCOUNTER → 2022-08-16 | Outpatient (CLI) | payer MEDICARE ==
--- NOTE | 2022-08-17 18:00 | MM ---
Reason for Exam: Screening (asymptomatic). Last mammogram was performed 1 year(s) and 11 month(s) ago. Patient History: Menarche at age 9. First Full-Term at age 20. Left ovary removed at age 68. Hysterectomy at age 68. Postmenopausal. Maternal aunt had breast cancer, age 90. Niece had breast cancer. Risk Values: Joselyn 5 year model risk: 1.7%. NCI Lifetime model risk: 3.0%. Prior Study Comparison: 06/19/2016 Bilateral Screening Mammogram, [facility]. 07/24/2019 Bilateral Screening Mammogram, [facility]. 09/30/2020 Bilateral Screening Mammogram, [facility]. Tissue Density: There are scattered fibroglandular densities. Findings: Analyzed By CAD. No suspicious groups of microcalcifications, spiculated or lobular masses, architectural distortion or other secondary signs of malignancy are mammographically apparent. Overall Assessment: Benign, BI-RAD 2 Management: Screening Mammogram of both breasts in 1 year. A negative mammogram report should not preclude additional follow up of suspicious palpable abnormalities. Patient should continue monthly self breast exam. A clinical breast exam by your physician is recommended on an annual basis and results should be correlated with mammographic findings. Electronically signed and approved by: Logan Kenyon D.O. Radiologis
== END | disposition home or self-care (01) ==
LOC: RADMAMWWP 14:58
DX: Z12.31 Encounter for screening mammogram for malignant neoplasm of breast (principal); Z78.0 Asymptomatic menopausal state; Z80.3 Family history of malignant neoplasm of breast
CPT/HCPCS: 77063; 77067

== ENCOUNTER → 2023-07-18 | Outpatient (CLI) | payer MEDICARE ==
--- NOTE | 2023-07-18 14:34 | XR ---
EXAMINATION TYPE: XR tibia fibula 2 views LT DATE OF EXAM: 07/18/2023 Comparison: None Clinical History: 77-year-old female R22.42 LOCALIZED SWELLING, MASS AND LUMP, LEFT LOW Findings: No acute fracture. No periostitis or osteolysis. Knee and ankle articulations are grossly intact. Impression: No acute osseous abnormality seen.
== END | disposition home or self-care (01) ==
LOC: RADXRMAIN 09:43
PROVIDERS: ATTEND Nurse Practitioner Women's Health
DX: R22.42 Localized swelling, mass and lump, left lower limb (principal)

== ENCOUNTER → 2023-09-11 | Outpatient (CLI) | payer MEDICARE ==
--- NOTE | 2023-09-12 08:31 | MM ---
Reason for Exam: Screening (asymptomatic). Last mammogram was performed 1 year(s) and 1 month(s) ago. Patient History: Menarche at age 9. First Full-Term at age 20. Left ovary removed at age 68. Hysterectomy at age 68. Postmenopausal. Patient has history of breast feeding. Maternal aunt had breast cancer, age 90. Niece had breast cancer. Risk Values: Joselyn 5 year model risk: 1.7%. NCI Lifetime model risk: 2.8%. Prior Study Comparison: 07/24/2019 Bilateral Screening Mammogram, [facility]. 09/30/2020 Bilateral Screening Mammogram, [facility]. 08/16/2022 Bilateral MG 3D screening mammo w/cad, [facility]. Tissue Density: There are scattered fibroglandular densities. Findings: Analyzed By CAD. Pattern appears symmetrical and stable. No significant interval change is evident. No suspicious groups of microcalcifications, spiculated or lobular masses, architectural distortion or other secondary signs of malignancy are mammographically apparent. Overall Assessment: Benign, BI-RAD 2 Management: Screening Mammogram of both breasts in 1 year. A negative mammogram report should not preclude additional follow up of suspicious palpable abnormalities. Patient should continue monthly self breast exam. A clinical breast exam by your physician is recommended on an annual basis and results should be correlated with mammographic findings. Electronically signed and approved by: Logan Kenyon D.O. Radiologis
== END | disposition home or self-care (01) ==
LOC: RADMAMWWP 15:03
PROVIDERS: ATTEND Family Medicine
DX: Z12.31 Encounter for screening mammogram for malignant neoplasm of breast (principal); Z78.0 Asymptomatic menopausal state; Z80.3 Family history of malignant neoplasm of breast
CPT/HCPCS: 77063; 77067

== ENCOUNTER 2023-10-30 19:45 | Emergency (ER) | payer MEDICARE ==
--- NOTE | 2023-10-30 19:52 | ED ---
Fall HPI - General Source: patient Mode of arrival: wheelchair <Serg Kaiser - Last Filed: 10/30/23 19:52> <Leobardo Cameron - Last Filed: 10/30/23 22:39> - General Chief Complaint: Fall Stated Complaint: Fall Time Seen by Provider: 10/30/23 19:52 - History of Present Illness Initial Comments: 78-year-old female presenting with chief complaint of right shoulder pain. Patient was about to fall and reached out to the wall, she then hit her right shoulder on the wall. She denies any head injury, loss of consciousness, or use of blood thinners. (Serg Kaiser) Dictation was produced using [employer] dictation software. please excuse any grammatical, word or spelling errors. Chief Complaint: 78-year-old female with right arm pain History of Present Illness: Patient is an 78-year-old female presents emergency department for right arm pain. Just prior to arrival she was walking with the lights off. States that she was sure she was going she tripped and landed on her right shoulder. Denies any head injury. Patient does not take any anticoagulation medications. No loss of consciousness. Patient complaining of right arm pain. Denies any numbness or tingling to the distal right upper external The ROS documented in this emergency department record has been reviewed and confirmed by me. Those systems with pertinent positive or negative responses have been documented in the HPI. All other systems are other negative and/or noncontributory. (Leobardo Cameron) - Related Data Home Medications Medication Instructions Recorded Confirmed Atorvastatin [Lipitor] 20 mg PO HS 07/05/17 04/20/20 Levothyroxine Sodium [Synthroid] 100 mcg PO SUMOWETHSA 07/05/17 04/20/20 Levothyroxine Sodium [Synthroid] 150 mcg PO TUFR 07/05/17 04/20/20 Loratadine [Claritin] 10 mg PO DAILY 07/05/17 04/20/20 Multivitamins, Thera [Multivitamin 1 tab PO DAILY 07/05/17 04/20/20 (formulary)] Primidone [Mysoline] 100 mg PO TID 07/05/17 04/20/20 Propranolol HCl [Inderal LA] 120 mg PO DAILY 07/05/17 04/20/20 Topiramate [Topamax] 50 mg PO TID 07/05/17 04/20/20 Cholecalciferol [Vitamin D3 (25 1,000 unit PO DAILY 10/16/18 04/20/20 Mcg = 1000 Iu)] Calcium Carbonate [Calcium] 600 mg PO DAILY 04/20/20 04/20/20 Previous Rx's Medication Instructions Recorded HYDROcodone/APAP 5-325MG [[place] 1 tab PO Q6HR PRN 3 Days #12 tab 10/30/23 5-325] Allergies Allergy/AdvReac Type Severity Reaction Status Date / Time adhesive AdvReac reddness Verified 04/20/20 11:00 Review of Systems ROS Other: All systems not noted in ROS Statement are negative. <Serg Kaiser - Last Filed: 10/30/23 19:52> ROS Other: All systems not noted in ROS Statement are negative. <Leobardo Cameron - Last Filed: 10/30/23 22:39> ROS Statement: Those systems with pertinent positive or pertinent negative responses have been documented in the HPI. Past Medical History Past Medical History: Hyperlipidemia, Thyroid Disorder Additional Past Medical History / Comment(s): , benign essential tremors History of Any Multi-Drug Resistant Organisms: None Reported Past Surgical History: Appendectomy, Cholecystectomy, Orthopedic Surgery Additional Past Surgical History / Comment(s): eye surgery for hole in macula, sagrario cataracts, rt foot sx Past Anesthesia/Blood Transfusion Reactions: Previous Problems w/ Anesthesia Additional Past Anesthesia/Blood Transfusion Reaction / Comment(s): trouble waking up Past Psychological History: No Psychological Hx Reported Past Alcohol Use History: None Reported Past Drug Use History: None Reported - Past Family History Father Family Medical History: CVA/TIA Additional Family Medical History / Comment(s): from kidney failure in 1983 Mother Family Medical History: Myocardial Infarction (CT) Additional Family Medical History / Comment(s): in 1996 Sister(s) Additional Family Medical History / Comment(s): trigeminal neuralgia Brother(s) Family Medical History: Pulmonary Embolus <Serg Kaiser - Last Filed: 10/30/23 19:52> General Exam Limitations: no limitations <Serg Kaiser - Last Filed: 10/30/23 19:52> <Leobardo Cameron - Last Filed: 10/30/23 22:39> - General Exam Comments Initial Comments: PHYSICAL EXAM: General Impression: Alert and oriented x3, not in acute distress HEENT: Normocephalic atraumatic, extra-ocular movements intact, pupils equal and reactive to light bilaterally, mucous membranes moist. Cardiovascular: Heart regular rate and rhythm Chest: Able to complete full sentences, no retractions, no tachypnea Abdomen: abdomen soft, non-tender, non-distended, no organomegaly Musculoskeletal: Pulses present and equal in all extremities, no peripheral edema Motor: no focal deficits noted Neurological: CN II-XII grossly intact, no focal motor or sensory deficits noted Skin: Intact with no visualized rashes Psych: Normal affect and mood Right shoulder: tenderness to the right proximal humerus (Leobardo Cameron) Course <Leobardo Cameron - Last Filed: 10/30/23 22:39> Vital Signs 10/30/23 19:48 Temperature 97.8 F Pulse Rate 62 Respiratory 18 Rate Blood Pressure 180/80 O2 Sat by Pulse 99 Oximetry - Reevaluation(s) Reevaluation #1: 10/30/23 22:24 Patient refusing computed tomography scan of the brain. She is technically low risk given that she is not on any anticoagulation medications. She is normocep halic atraumatic to the head and neck. Discussed patient that because she is elderly that she could possibly have a intracranial brain injury. She understands and continues to refuse CT imaging of the brain (Leobardo Cameron) Procedures - Orthopedic Splinting/Casting Injury #1 Side: right Upper Extremity Injury Location: shoulder <Leobardo Cameron - Last Filed: 10/30/23 22:39> - Orthopedic Splinting/Casting Injury #1 Additional Comments: right UE coapt splint (Leobardo Cameron) Medical Decision Making <Leobardo Cameron - Last Filed: 10/30/23 22:39> - Medical Decision Making Was pt. sent in by a medical professional or institution (, PA, SOFTWARE VALIDATION TECHNICIAN, urgent care, hospital, or prison...) When possible be specific @ -No Did you speak to anyone other than the patient for history (EMS, parent, family, police, friend...)? What history was obtained from this source @ -No Did you review nursing and triage notes (agree or disagree)? Why? @ -I reviewed and agree with nursing and triage notes Were old charts reviewed (outside hosp., previous admission, EMS record, old EKG, old radiological studies, urgent care reports/EKG's, prison records)? Report findings @ -No old charts were reviewed Differential Diagnosis (chest pain, altered mental status, abdominal pain women, abdominal pain men, vaginal bleeding, musculoskeletal, weakness, fever, dyspnea, syncope, headache, dizziness, GI bleed, back pain, seizure, CVA, palpatations, mental health)? @ -not applicable EKG interpreted by me (3pts min.). @ -None done X-rays interpreted by me (1pt min.). @ -X-ray of the right shoulder shows greater tuberosity fracture with extension to the surgical neck of the right proximal humerus without gross displacement CT interpreted by me (1pt min.). @ -None done U/S interpreted by me (1pt. min.). @ -None done What testing was considered but not performed or refused? (CT, X-rays, U/S, labs)? Why? @ -None What meds were considered but not given or refused? Why? @ -None Did you discuss the management of the patient with other professionals (professionals i.e. , PA, SOFTWARE VALIDATION TECHNICIAN, lab, RT, psych nurse, social worker aide, tar pot man, teacher, chief analytics officer, family service caseworker)? Give summary @ -No Was smoking cessation discussed for >3mins.? @ -No Was critical care preformed (if so, how long)? @ -No Were there social determinants of health that impacted care today? How? (Homelessness, low income, unemployed, alcoholism, drug addiction, transportation, low edu. Level, literacy, decrease access to med. care, residential, rehab)? @ -No Was there de-escalation of care discussed even if they declined (Discuss DNR or withdrawal of care, Hospice)? DNR status @ -No What co-morbidities impacted this encounter? (DM, HTN, Smoking, COPD, CAD, Cancer, CVA, ARF, Chemo, Hep., AIDS, mental health diagnosis, sleep apnea, morbid obesity)? @ -None Was patient admitted / discharged? Hospital course, mention meds given and route, prescriptions, significant lab abnormalities, going to OR and other pertinent info. @ -78-year-old female presents emergency Department with a right shoulder fracture. Vital signs are stable. Patient refusing computed tomography scan of the brain. She provides history. Present illness suggestive of mechanical fall that she was walking in the dark and likely trip. Patient given analgesics. Patient placed in a right upper extremity coapt splint and sling. Patient given referral to orthopedic surgery. She is also given prescription for oral analgesics. Undiagnosed new problem with uncertain prognosis? @ -No Drug Therapy requiring intensive monitoring for toxicity (Heparin, Nitro, Insulin, Cardizem)? @ -No Were any procedures done? @ -No Diagnosis/symptom? Acute, or Chronic, or Acute on Chronic? Uncomplicated (without systemic symptoms) or Complicated (systemic symptoms)? @ -Proximal humerus fracture Side effects of treatment? @ -No Exacerbation, Progression, or Severe Exacerbation? @ -No Poses a threat to life or bodily function? How? (Chest pain, USA, CT, pneumonia, PE, COPD, DKA, ARF, appy, cholecystitis, CVA, Diverticulitis, Homicidal, Suicidal, threat to staff... and all critical care pts) @ -yes (Leobardo Cameron) Disposition <Serg Kaiser - Last Filed: 10/30/23 19:52> Is patient prescribed a controlled substance at d/c from ED?: Yes If prescribed controlled substance>3 days was MAPS reviewed?: Prescribed <3 Days Time of Disposition: 22:39 <Leobardo Cameron - Last Filed: 10/30/23 22:39> Clinical Impression: Humerus fracture Disposition: HOME SELF-CARE Condition: Good Instructions (If sedation given, give patient instructions): Fall Prevention for Older Adults (ED) Prescriptions: HYDROcodone/APAP 5-325MG [[place] 5-325] 1 tab PO Q6HR PRN 3 Days #12 tab PRN Reason: Severe Pain Referrals: John Santana MD [STAFF PHYSICIAN] - 1-2 days
[2023-10-30 19:56] VITALS: RESP 18
--- NOTE | 2023-10-30 21:14 | XR ---
EXAMINATION TYPE: XR shoulder complete RT DATE OF EXAM: 10/30/2023 CLINICAL HISTORY: pain TECHNIQUE: Three views of the right shoulder are obtained. COMPARISON: None FINDINGS: Fracture involving the greater tuberosity of the right humerus with underlying comminution. Fracture appears to extend into the surgical neck. Glenohumeral joint space is intact. AC joint is t he moderately narrowed. The visualized ribs are intact and unremarkable. IMPRESSION: Right humeral fractures as above.
[2023-10-30] MEDS ORDERED: ACET/COD 300 MG/30 MG STARTER PACK 6 TAB BTL PO STA (22:33)
[2023-10-30] MEDS ORDERED: MORPHINE SULFATE 4 MG/ML SYRINGE IM STA (22:33)
[2023-10-30] MEDS ORDERED: traMADol 50 MG STARTER PACK 3 TAB BTL PO STA (22:34)
[2023-10-30 22:59] VITALS: BP 155/91; PULSE 60; TEMP 98.1
== END 2023-10-30 22:45 | disposition home or self-care (01) ==
LOC: EC 19:45
DX: S42.251A Displaced fracture of greater tuberosity of right humerus, initial encounter for closed fracture (principal); E78.5 Hyperlipidemia, unspecified; E07.9 Disorder of thyroid, unspecified; Z79.890 Hormone replacement therapy; Z79.899 Other long term (current) drug therapy; Z91.09 Other allergy status, other than to drugs and biological substances; W01.0XXA Fall on same level from slipping, tripping and stumbling without subsequent striking against object, initial encounter; W22.01XA Walked into wall, initial encounter; Y93.01 Activity, walking, marching and hiking
CPT/HCPCS: 73030; 29105; 96372; 99284; J2270

== ENCOUNTER → 2024-02-14 | Outpatient (CLI) | payer MEDICARE ==
--- NOTE | 2024-02-14 12:53 | FL ---
Exam Date: 02/14/2024 11:27 AM. Modified barium swallow for dysphagia. Consistencies administered: Various consistency of barium. Fluoro time: preformed by MJL and KM No images were sent to PACS. Please see speech pathology report. DAP: no dap due to age of equipment [id number] Gycm2
== END | disposition home or self-care (01) ==
LOC: RADFLMAIN 10:47
PROVIDERS: ATTEND Psychiatry & Neurology Neurology
DX: R49.0 Dysphonia (principal); R13.10 Dysphagia, unspecified
CPT/HCPCS: 74230

== ENCOUNTER → 2024-09-04 | Outpatient (CLI) | payer MEDICARE ==
--- NOTE | 2024-09-04 12:19 | XR ---
EXAMINATION TYPE: XR Hip Complete LT DATE OF EXAM: 09/04/2024 CLINICAL HISTORY: pain TECHNIQUE: AP and frogleg views of the left hip are obtained. COMPARISON: None. FINDINGS: There is no acute fracture/dislocation evident. The joint space appears mildly narrowed. The overlying soft tissue appears unremarkable. IMPRESSION: 1. There is no acute fracture or dislocation.ICD 10 NO FRACTURE, INITIAL EVALUATION [facility], , 09/04/2024 12:17 PM
== END | disposition home or self-care (01) ==
LOC: RADXRMAIN 11:59
PROVIDERS: ATTEND Family Medicine
DX: M25.559 Pain in unspecified hip (principal)
CPT/HCPCS: 73502

== ENCOUNTER → 2024-09-07 | Outpatient (CLI) | payer MEDICARE ==
[2024-09-07 16:35] LABS: ALT <5 U/L (8-44); AST 22 U/L (13-35); Albumin 4.2 g/dL (3.8-4.9); Alkaline Phosphatase 84 U/L (41-126); BUN/Creat Ratio 30.33 Ratio (12.00-20.00); Blood Urea Nitrogen 27.3 mg/dL (9.0-27.0); Calcium 9.2 mg/dL (8.7-10.3); Carbon Dioxide 26.1 mmol/L (21.6-31.8); Chloride 105 mmol/L (96-109); Chol/HDL Ratio 3.73 Ratio; Globulin 2.1 g/dL (1.6-3.3); Glucose 95 mg/dL (70-110); LDL Cholesterol,Calculated 121.8 mg/dL (0.0-131.0); Potassium 4.2 mmol/L (3.5-5.5); Sodium 140 mmol/L (135-145); T4, Free (Free Thyroxine) 1.49 ng/dL (0.80-1.80); Total Bilirubin 0.3 mg/dL (0.3-1.2); Total Protein 6.3 g/dL (6.2-8.2)
[2024-09-07 17:07] LABS: Basophils # (A) 0.02 X 10*3/uL (0.00-0.10); Basophils % (A) 0.3 %; Eosinophils # (A) 0.16 X 10*3/uL (0.04-0.35); Eosinophils % (A) 2.4 %; HCT 40.9 % (37.2-46.3); Lymphocytes # (A) 1.24 X 10*3/uL (0.90-5.00); Lymphocytes % (A) 18.6 %; MCH 32.6 pg (27.0-32.0); MCHC 31.8 g/dL (32.0-37.0); MCV 102.5 FL (80.0-97.0); Mean Platelet Volume 10.9 FL (9.5-12.2); Monocytes # (A) 0.67 X 10*3/uL (0.20-1.00); NRBC Per 100 WBC 0 X 10*3/uL (0.00-0.01); Neutrophils # (A) 4.57 X 10*3/uL (1.80-7.70); Neutrophils % (A) 68.4 %; Platelet Count 230 X 10*3/uL (140-440); RBC 3.99 X 10*6/uL (4.10-5.20); RDW 12.8 % (11.5-14.5); WBC 6.68 X 10*3/uL (4.50-10.00)
[2024-09-07 17:56] LABS: Erythrocyte Sedimentation Rate 17 mm/Hr (0-30)
== END | disposition home or self-care (01) ==
LOC: LABWHC1 08:48
PROVIDERS: ATTEND Family Medicine
CPT/HCPCS: 36415; 80053; 80061; 82306; 84439; 84443; 85025; 85652

== ENCOUNTER → 2024-09-23 | Outpatient (CLI) | payer MEDICARE ==
--- NOTE | 2024-09-26 22:32 | MM ---
Reason for Exam: Screening (asymptomatic). Last screening mammogram was performed 12 month(s) ago. Patient History: Menarche at age 9. First Full-Term at age 20. Left ovary removed at age 68. Hysterectomy at age 68. Postmenopausal. Patient has history of breast feeding. Maternal aunt had breast cancer, age 90. Niece had breast cancer. Risk Values: Joselyn 5 year model risk: 1.6%. NCI Lifetime model risk: 2.5%. Prior Study Comparison: 09/30/2020 Bilateral Screening Mammogram, [facility]. 08/16/2022 Bilateral MG 3D screening mammo w/cad, [facility]. 09/11/2023 Bilateral MG 3D screening mammo w/cad, [facility]. Tissue Density: There are scattered areas of fibroglandular density. Findings: Analyzed By CAD. The pattern is symmetrical. No significant interval change No suspicious groups of microcalcifications, spiculated or lobular masses, architectural distortion or other secondary signs of malignancy are mammographically apparent. Overall Assessment: Negative, BI-RAD 1 Management: Screening Mammogram of both breasts in 1 year. A negative mammogram report should not preclude additional follow up of suspicious palpable abnormalities. Patient should continue monthly self breast exam. A clinical breast exam by your physician is recommended on an annual basis and results should be correlated with mammographic findings. Note on Joselyn scores and lifetime risk: 1. A Joselyn score greater than 3% is considered moderate risk. If this is the case, consider specialist referral to assess eligibility for a risk reducing agent. 2. If overall lifetime risk for the development of breast cancer is 20% or higher, the patient may qualify for future screening with alternating mammogram and breast MRI. [facility], , 09/26/2024 10:29 PM. Electronically signed and approved by: Logan Kenyon D.O. Radiologis
--- NOTE | 2024-09-27 22:40 | BD ---
EXAMINATION TYPE: Axial Bone Density DATE OF EXAM: 09/23/2024 CLINICAL HISTORY: 78 years old Female. ICD-10 CODE: Z78.0 ASYMPTOMATIC MENOPAUSAL STA , Additional History: Height: 61 Weight: 124 FRAX RISK QUESTIONS: Family History (Parent hip fracture): no History of Fracture in Adulthood: yes Secondary Osteoporosis: no RISK FACTORS HISTORY OF: History of left Wrist Fracture: yes When: 2017 Surgery to Spine/Hip(right/left)/Wrist (right/left): no MEDICATIONS: Thyroid Medications: yes Which medication: Levothyroxine How Lon+ years Osteoporosis Medications: no EXAM MEASUREMENTS: Bone mineral densitometry was performed using the [employer] System. Bone mineral density as measured about the Lumbar spine is: ----- L1-L4(G/cm2): 0.871 T Score Values are as follows: ----- L1: -3.3 ----- L2: -3.7 ----- L3: -2.4 ----- L4: -1.5 ----- L1-L4: -2.6 Z Score Values are as follows: ----- L1: -1.2 ----- L2: -1.6 ----- L3: -0.3 ----- L4: 0.6 ----- L1-L4: -0.4 Bone mineral density has: Increased 4.0% since study of: 07-31-2021 Bone mineral density about the R hip (g/cm2): 0.761 Bone mineral density about the L hip (g/cm2): 0.724 T Score values are as follows: -----R Neck: -2.9 -----L Neck: -2.8 -----R Total: -2.0 -----L Total: -2.3 Z Score values are as follows: -----R Neck: -0.5 -----L Neck: -0.4 -----R Total: 0.3 -----L Total: 0.0 Bone mineral density has: Decreased -2.5% since study of: 07-31-2021 FRAX%s: The graph provided illustrates a 30.8% chance for a major osteoporotic fx and a 11.8% chance for the hips probability for fx in 10 years time. IMPRESSION: Osteoporosis (T Score less than -2.5). There is increased fracture risk and therapy is usually indicated based on age. Re-Screen 1-2 years. NOTE: T-SCORE=SD OF THE YOUNG ADULT MEAN. [facility], , 09/27/2024 10:38 PM
== END | disposition home or self-care (01) ==
LOC: RADMAMWWP 10:11
PROVIDERS: ATTEND Family Medicine
DX: Z12.31 Encounter for screening mammogram for malignant neoplasm of breast (principal); R92.323 Mammographic fibroglandular density, bilateral breasts; M81.0 Age-related osteoporosis without current pathological fracture; Z78.0 Asymptomatic menopausal state; Z80.3 Family history of malignant neoplasm of breast
CPT/HCPCS: 77063; 77067; 77080

== ENCOUNTER 2025-02-08 08:47 | Emergency (ER) | payer MEDICARE ==
--- NOTE | 2025-02-08 09:15 | ED ---
General Adult HPI - General Chief complaint: Fall Stated complaint: Fall-Head/R Arm injury Time Seen by Provider: 02/08/25 08:56 Source: patient, family, RN notes reviewed, old records reviewed Mode of arrival: wheelchair Limitations: physical limitation - History of Present Illness Initial comments: 79-year-old female presents status post fall which occurred in the middle of the night. Patient had stubbed her left toes on bedroom furniture and then fell striking both her right elbow and the back of her head. No loss conscious. No anticoagulation. Patient complains predominantly of right elbow pain and left great toe pain. - Related Data Home Medications Medication Instructions Recorded Confirmed Atorvastatin [Lipitor] 20 mg PO HS 07/05/17 04/20/20 Levothyroxine Sodium [Synthroid] 100 mcg PO SUMOWETHSA 07/05/17 04/20/20 Levothyroxine Sodium [Synthroid] 150 mcg PO TUFR 07/05/17 04/20/20 Loratadine [Claritin] 10 mg PO DAILY 07/05/17 04/20/20 Multivitamins, Thera [Multivitamin 1 tab PO DAILY 07/05/17 04/20/20 (formulary)] Primidone [Mysoline] 100 mg PO TID 07/05/17 04/20/20 Propranolol HCl [Inderal LA] 120 mg PO DAILY 07/05/17 04/20/20 Topiramate [Topamax] 50 mg PO TID 07/05/17 04/20/20 Cholecalciferol [Vitamin D3 (25 1,000 unit PO DAILY 10/16/18 04/20/20 Mcg = 1000 Iu)] Calcium Carbonate [Calcium] 600 mg PO DAILY 04/20/20 04/20/20 Previous Rx's Medication Instructions Recorded HYDROcodone/APAP 5-325MG [[place] 1 tab PO Q6HR PRN 3 Days #12 tab 10/30/23 5-325] Allergies Allergy/AdvReac Type Severity Reaction Status Date / Time adhesive AdvReac reddness Verified 02/08/25 08:54 Review of Systems ROS Statement: Those systems with pertinent positive or pertinent negative responses have been documented in the HPI. ROS Other: All systems not noted in ROS Statement are negative. Past Medical History Past Medical History: Hyperlipidemia, Thyroid Disorder Additional Past Medical History / Comment(s): , benign essential tremors. osteoporosis, History of Any Multi-Drug Resistant Organisms: None Reported Past Surgical History: Appendectomy, Cholecystectomy, Orthopedic Surgery Additional Past Surgical History / Comment(s): eye surgery for hole in macula, sagrario cataracts, rt foot sx Past Anesthesia/Blood Transfusion Reactions: Previous Problems w/ Anesthesia Additional Past Anesthesia/Blood Transfusion Reaction / Comment(s): trouble wa dannie up Past Psychological History: No Psychological Hx Reported Smoking Status: Never smoker Past Alcohol Use History: Occasional Past Drug Use History: None Reported - Past Family History Father Family Medical History: CVA/TIA Additional Family Medical History / Comment(s): from kidney failure in 1983 Mother Family Medical History: Myocardial Infarction (SC) Additional Family Medical History / Comment(s): in 1996 Sister(s) Additional Family Medical History / Comment(s): trigeminal neuralgia Brother(s) Family Medical History: Pulmonary Embolus General Exam Limitations: physical limitation General appearance: alert, in no apparent distress Head exam: Present: atraumatic, normocephalic Eye exam: Present: normal appearance, PERRL ENT exam: Present: normal exam Neck exam: Present: normal inspection. Absent: tenderness, meningismus Respiratory exam: Present: normal lung sounds bilaterally. Absent: respiratory distress, wheezes Cardiovascular Exam: Present: regular rate, normal rhythm GI/Abdominal exam: Present: soft. Absent: distended, tenderness Extremities exam: Present: other (Normal range of motion of the right elbow, abrasion to the right forearm no active bleeding, no repairable laceration. The left foot shows slight deformity of the great toe with pain with range of motion. Warm, not erythematous no ecchymosis.) Course Vital Signs 02/08/25 08:49 Temperature 97.3 F L Pulse Rate 63 Respiratory 18 Rate Blood Pressure 154/73 O2 Sat by Pulse 100 Oximetry Medical Decision Making - Medical Decision Making Was pt. sent in by a medical professional or institution (, PA, ADJUNCT TEACHER, urgent care, hospital, or longterm...) When possible be specific @ -No Did you speak to anyone other than the patient for history (EMS, parent, family, police, friend...)? What history was obtained from this source @ -No Did you review nursing and triage notes (agree or disagree)? Why? @ -I reviewed and agree with nursing and triage notes Were old charts reviewed (outside hosp., previous admission, EMS record, old EKG, old radiological studies, urgent care reports/EKG's, longterm records)? Report findings @ -No old charts were reviewed Differential Diagnosis traumatic injury from fall, head injury, concussion, intracranial hemorrhage, displaced fracture, orthopedic injury EKG interpreted by me (3pts min.). @ -As above X-rays interpreted by me (1pt min.). @ -[X-ray of the right elbow negative for acute bony abnormality, x-ray of the left foot showing a buckle fracture of the proximal first phalanx CT interpreted by me (1pt min.). @ -CT negative for intracranial hemorrhage or mass effect U/S interpreted by me (1pt. min.). @ -None done What testing was considered but not performed or refused? (CT, X-rays, U/S, labs)? Why? @ -None What meds were considered but not given or refused? Why? @ -None Did you discuss the management of the patient with other professionals (professionals i.e. , PA, ADJUNCT TEACHER, lab, RT, psych nurse, geriatric social work professor, licensed funeral director, teacher, public relations officer, onsite case manager)? Give summary @ -No Was smoking cessation discussed for >3mins.? @ -No Was critical care preformed (if so, how long)? @ -No Were there social determinants of health that impacted care today? How? (Homelessness, low income, unemployed, alcoholism, drug addiction, transportation, low edu. Level, literacy, decrease access to med. care, senior living, rehab)? @ -No Was there de-escalation of care discussed even if they declined (Discuss DNR or withdrawal of care, Hospice)? DNR status @ -No What co-morbidities impacted this encounter? (DM, HTN, Smoking, COPD, CAD, Cancer, CVA, ARF, Chemo, Hep., AIDS, mental health diagnosis, sleep apnea, morbid obesity)? @ -None Was patient admitted / discharged? Hospital course, mention meds given and route, prescriptions, significant lab abnormalities, going to OR and other pertinent info. @ -79-year-old female with mechanical fall, left great toe injury, right elbow injury, minor head injury. CT of the brain is negative for intracranial hemorrhage or mass effect, x-ray of the right elbow negative for displaced fracture, x-ray of the left foot shows a buckle fracture of the proximal phalanx first digit. Patient is placed in a postoperative shoe and given orthopedic follow-up. Undiagnosed new problem with uncertain prognosis? @ -No Drug Therapy requiring intensive monitoring for toxicity (Heparin, Nitro, Insulin, Cardizem)? @ -No Were any procedures done? @ -No Diagnosis/symptom? @First proximal phalanx fracture left foot Acute, or Chronic, or Acute on Chronic? @ -Acute Uncomplicated (without systemic symptoms) or Complicated (systemic symptoms)? @ -Default Side effects of treatment? @ -No Exacerbation, Progression, or Severe Exacerbation? @ -No Poses a threat to life or bodily function? How? (Chest pain, USA, SC, pneumonia, PE, COPD, DKA, ARF, appy, cholecystitis, CVA, Diverticulitis, Homicidal, Suicidal, threat to staff... and all critical care pts) @ -No Disposition Clinical Impression: Fall, Toe fracture, left Disposition: HOME SELF-CARE Condition: Fair Instructions (If sedation given, give patient instructions): Fall Prevention (ED), Toe Fracture (ED) Is patient prescribed a controlled substance at d/c from ED?: No Referrals: Jameson Fermin Jr, [Primary Care Provider] - 1-2 days Deanna Sheth [Doctor of Osteopathic Medicine] - 1-2 days Time of Disposition: 10:16
--- NOTE | 2025-02-08 09:30 | CT ---
EXAMINATION TYPE: CT brain wo con DATE OF EXAM: 02/08/2025 COMPARISON: CT brain April 20, 2020 CLINICAL INDICATION: Female, 79 years old with history of fall/SAUCEDA, Fall, SAUCEDA. TECHNIQUE: CT scan of the head is performed without contrast. CT DLP: 1112.4 mGycm. Automated Exposure Control for Dose Reduction was Utilized. FINDINGS: Persistent bilateral frontal naif holes with stimulator leads terminating in the deep cent ral brain bilaterally. These cause artifact making evaluation suboptimal similar to prior There is no acute intracranial hemorrhage or midline shift identified. There is mild diffuse ventricular and sul matt prominence redemonstrated. There is moderate low-attenuation in the deep and periventricular whi te matter redemonstrated. The globes are intact and the visualized sinuses are clear. IMPRESSION: No acute intracranial hemorrhage or midline shift. No significant change from most recen t prior CT. [facility], , 02/08/2025 9:27 AM
--- NOTE | 2025-02-08 09:44 | XR ---
EXAMINATION TYPE: XR elbow complete RT DATE OF EXAM: 02/08/2025 9:19 AM COMPARISON: None CLINICAL INDICATION: Female, 79 years old with history of fall/pain; PHH, pain TECHNIQUE: XR elbow complete RT; elbow was examined in AP, lateral, and oblique projections. FINDINGS: No evidence of any acute osseous pathology, joint dislocation, or soft tissue swelling is n oted. No evidence of joint effusion is present. IMPRESSION: No evidence of acute fracture. [facility], , 02/08/2025 9:41 AM
--- NOTE | 2025-02-08 09:45 | XR ---
EXAMINATION TYPE: XR foot complete LT DATE OF EXAM: 02/08/2025 9:19 AM COMPARISON: None CLINICAL INDICATION: Female, 79 years old with history of fall/pain; PHH, pain TECHNIQUE: XR foot complete LT examined in the AP, oblique, and lateral projections. FINDINGS: Cortical buckling of the head of the first digit proximal phalanx near the interphalangeal joint. Mul tifocal degeneration changes throughout the joints of the foot with osteophyte formation and joint sp deborah narrowing. IMPRESSION: 1. Cortical buckling of the first digit proximal phalanx head. Correlate for minimally displaced fra cture. Alternatively this could represent osteophyte formation. 2. Multifocal degeneration changes throughout the joints of the foot. [facility], , 02/08/2025 9:43 AM
[2025-02-08 10:28] VITALS: BP 147/86; PULSE 65; RESP 16; TEMP 97.9
== END 2025-02-08 10:26 | disposition home or self-care (01) ==
LOC: EC 08:47
DX: S92.412A Displaced fracture of proximal phalanx of left great toe, initial encounter for closed fracture (principal); S50.811A Abrasion of right forearm, initial encounter; S09.90XA Unspecified injury of head, initial encounter; Z91.048 Other nonmedicinal substance allergy status; W08.XXXA Fall from other furniture, initial encounter; Y92.042 Bedroom in boarding-house as the place of occurrence of the external cause
CPT/HCPCS: 70450; 99284